=== PATIENT | male | born 1980 | race Caucasian/White ===

== ENCOUNTER 2016-05-23 21:19 | Emergency (ER) | payer SELFPAY ==
[~2016-05-23] VITALS: Ht 185.4 cm; Wt 77.1 kg
[~2016-05-23 21:19] MED LIST: ACHD5005 PO; ADHD MED; ALBU2.5V4 IH; ANTIBIOTIC; BENZ-13 PO; BUPR150T20 PO; CITA20TA12 PO; CLCX200C PO; CYCL10TA9 PO; DOXY100C2 PO; FLUP10TA; GBPN300C PO; GBPN600T PO; GFCD10B PO; HC2.5C30 TOP; HCT25T PO; HYDR-3820 PO; HYDR-707 PO; HYDR1TAB PO; HYDROCODONE; IBP800T PO; KLONOPIN; LAMO100T69 PO; LAMO150T3 PO; LAMO200T14 PO; LISI-552 PO; LISI-593 PO; LISI1TAB10 PO; MELO-198 PO; METO25TA2 PO; MINO100C2 PO; MULT-963 PO; NAPR-243 PO; NAPR550T PO; NEUROTIN; PRD20T PO; PRM25T PO; QUET50TA; SULF1TAB38 PO; TIZA4CAP PO; TOPI50TA37 PO; TRAM50TA2 PO; TRAZODONE; TRM50T PO; TRZ100T PO; ZIPR60CA6; [UNRECOGNIZED DRUG - CODE] PO; depression med; tylenol
--- OUTSIDE RECORDS SUMMARY | 2016-05-23 21:23 | XMS REPORT | Continuity of Care Document ---
Author Author [facility] Organization [facility] Address Unknown Phone Unavailable Care Team Providers Care Inspector Electromechanical Name Role Phone Unknown, Unknown PCP Unavailable Source Comments Some departments are not documenting in the electronic medical record. If you do not see the information that you expected, contact Release of Information in the Health Information Management department at [phone] for further assistance in locating additional records.[facility] Active Allergies and Adverse Reactions Not on File Current Medications Not on file Active Problems Not on file Social History Tobacco Use Types Packs/Day Years Used Date Never Assessed Plan of Care Health Maintenance Due Date Last Done Comments Physical (Comprehensive) 1989 Exam Pertussis Vaccine 1993 Tetanus Vaccine 07/27/1999 Influenza Vaccine 01/09/2015 Results from Last 3 Months Not on file
--- NOTE | 2016-05-23 21:52 | ED Fall/Injury ---
General Chief Complaint: Trauma-Non Activation Stated Complaint: FAC LAC/R WRIST INJ/SEIZURE Nursing Triage Note: FALL, SEE TRAUMA ASSESSMENT Source: patient Exam Limitations: no limitations History of Present Illness Time seen by provider: 21:50 Initial Comments To ER with a head injury. Patient states that he was arguing with his father when the police were called. Police arrived and "shoved me off my porch". States that he struck the left side of his head and face on the ground beneath and he subsequently lost consciousness and had a seizure. He reports seizure disorder but he does not take any medications to treat this. He also reports right wrist and left shoulder pain. Location Injury Occurred: HOME Occurred: just prior to arrival Severity: moderate Injuries/Pain Location: face Context: unknown Associated Symptoms (Fall): No Confusion, Headache Allergies and Home Medications Allergies Coded Allergies: Penicillins (Verified Allergy, Unknown, 01/12/08) codeine (Verified Allergy, Unknown, 01/12/08) Home Medications Albuterol Sulfate 2.5 Mg/3 Ml Vial.neb #28 2.5 MG IH Q4H PRN PRN SHORTNESS OF BREATH Prescribed by: LYRIC SEXTON on 02/27/16 1244 Benzonatate 100 Mg Capsule #14 1-2 CAP PO Q8H PRN PRN COUGH Prescribed by: LYRIC SEXTON on 02/27/16 1309 Citalopram Hydrobromide 20 Mg Tablet 20 MG PO DAILY (Reported) Hydrocodone/Acetaminophen 1 Each Tablet 1 EACH PO Q6H (Reported) Lisinopril/Hydrochlorothiazide 1 Each Tablet 1 EACH PO DAILY (Reported) Minocycline HCl 100 Mg Capsule #14 100 MG PO BID Prescribed by: LYRIC SEXTON on 02/27/16 1309 Prednisone 20 Mg Tab #10 40 MG PO DAILY Prescribed by: LYRIC SEXTON on 02/27/16 1244 Topiramate 50 Mg Tablet 50 MG PO BID (Reported) Constitutional: see HPI Eyes: No Symptoms Reported Ears, Nose, Mouth, Throat: no symptoms reported Respiratory: no symptoms reported Cardiovascular: no symptoms reported Genitourinary: no symptoms reported Musculoskeletal: no symptoms reported Skin: no symptoms reported Psychiatric/Neurological: No Symptoms Reported Past Wulczys-Zstwis-Qhnyzq Hx Patient Social History Alcohol Use: Occasionally Uses Recreational Drug Use: No Smoking Status: Former Smoker Type Used: Cigarettes Former Smoker/When Quit: May 11, 2009 Recent Foreign Travel: No Contact w/Someone Who Travel: No Recent Infectious Disease Expo: No Recent Hopitalizations: No Physical Abuse Screen: No Sexual Abuse: No Immunizations Up To Date Tetanus Booster (TDap): Unknown Date of Influenza Vaccine: May 11, 2012 Seasonal Allergies Seasonal Allergies: No Surgeries HX Surgeries: Yes (SURGERY ON FEMUR) Surgeries: Orthopedic, Tonsillectomy Respiratory Hx Respiratory Disorders: Yes (RESPIRATORY INFECTIONS) Cardiovascular Hx Cardiac Disorders: Yes (PT REPORTS HYPERTENSION RELATED TO MEDICATIONS) Cardiac Disorders: Hypertension Neurological Hx Neurological Disorders: Yes Neurological Disorders: Headaches /Migraines, Seizure Disorder Reproductive System Hx Reproductive Disorders: No Sexually Transmitted Disease: No HIV/AIDS: No Genitourinary Hx Genitourinary Disorders: No Gastrointestinal Hx Gastrointestinal Disorders: Yes Gastrointestinal Disorders: Ulcer Musculoskeletal Hx Musculoskeletal Disorders: Yes (FEMUR FRACTURE (PREVIOUS SURGERY ON FEMUR), back/hip pain) Musculoskeletal Disorders: Chronic Back Pain, Fractures Endocrine Hx Endocrine Disorders: Yes Endocrine Disorders: Hyperthyroidism HEENT HX ENT Disorders: No Cancer Hx Cancer: No Psychosocial Hx Psychiatric Problems: Yes Behavioral Health Disorders: ADD/ADHD, Sleep Difficulties, Bipolar, Schizophrenia, Depression Integumentary HX Skin/Integumentary Disorder: No Blood Transfusions Hx Blood Disorders: No Adverse Reaction to a Blood Tr: No Family Medical History Significant Family History: No Pertinent Family Hx Family Medial History: Patient reports no known family medical history. Physical Exam Vital Signs Vital Sign - Last 12Hours 05/23/16 21:36 Temp 96.7 Pulse 99 Resp 20 B/P 123/87 Pulse Ox 99 O2 Delivery Room Air Capillary Refill : Less Than 3 Seconds General Appearance: WD/WN no apparent distress HEENT: PERRL/EOMI normal ENT inspection TMs normal other (extraocular muscles are intact. There is an abrasion/contusion to the left cheek but there is not a laceration.) Neck: non-tender full range of motion Cardiovascular: regular rate, rhythm no murmur Respiratory: normal breath sounds no respiratory distress no accessory muscle use Gastrointestinal: normal bowel sounds non tender soft Neurologic/Psychiatric: alert normal mood/affect oriented x 3 [place] Coma Score Best Eye Response: (3) Open to Voice Best Verbal Response: (5) Oriented Best Motor Response: (6) Obeys Commands Monte[place]uma Total: 14 Progress/Results/Core Measures Results/Orders My Orders Orders-LO FRIEND APRN Wrist, Right, 3 Views Or More (05/23/16 21:46) Shoulder, Left, 3 Views (05/23/16 21:46) Ct Head/Face/Cervical Wo (05/23/16 21:46) Vital Signs/I&O Vital Sign - Last 12Hours 05/23/16 21:36 Temp 96.7 Pulse 99 Resp 20 B/P 123/87 Pulse Ox 99 O2 Delivery Room Air Blood Pressure Mean: 99 Diagnostic Imaging Diagonstic Imaging: CT Comments CT of the head and face cervical spine shows no acute intracranial hemorrhage, mass effect, midline shift, herniation or hydrocephalus. No calvarial fracture. CT of the facial bones shows no acute facial fractures. The globes and orbits are intact. Mandible is intact. There is left facial swelling/ contusion. CT cervical spine shows no fracture or significant malalignment. I do not see any fracture or dislocation of the left shoulder or right wrist where he also complains of pain. Departure Impression Impression: Primary Impression: Facial contusion Qualified Code: S00.83XA - Contusion of other part of head, initial encounter Additional Impression: Seizure disorder Disposition: 01 HOME, SELF-CARE Condition: Stable Departure-Patient Inst. Decision time for Depature: 22:24 Referrals: [facility] (PCP/Family) Primary Care Physician Patient Instructions: Contusion (DC) Add. Discharge Instructions: 1. Follow-up with your doctor next week 2. Return to ER for any concerns All discharge instructions reviewed with patient and/or family. Voiced understanding. LO FRIEND APRN May 23, 2016 21:52
[2016-05-23 22:46] VITALS: BP 106/62
--- NOTE | 2016-05-24 07:47 | Diagnostic Imaging Report ---
PROCEDURE: CT head, face, and cervical spine without contrast. TECHNIQUE: Multiple contiguous axial images were obtained through the head, neck, and facial bones without the use of intravenous contrast. Sagittal and coronal reformations through the cervical spine and facial bones were also performed. INDICATION: Fall. COMPARISON: August 19, 2015 and July 04, 2012 FINDINGS: No intracranial hemorrhage. No intracranial mass, mass effect, midline shift, herniation, hydrocephalus, or extra-axial fluid collection. No definite CT evidence of an acute ischemic infarction. The calvarium and extracalvarial soft tissues are unremarkable. The mandible is intact. No temporomandibular joint dislocation. The paranasal sinuses are clear. No acute facial fracture. Mild left facial swelling and contusion. No suspicious radiopaque foreign body. Alignment of the cervical spine is well maintained. Vertebral body heights are well-maintained. Alignment of the atlantooccipital joint is well maintained. Disc space heights are well-maintained. No acute fracture or dislocation. No destructive osseous process. The paraspinal soft tissues are unremarkable. IMPRESSION: 1. No acute intracranial abnormality. 2. No acute facial fracture. 3. No acute osseous abnormality within the cervical spine. 4. Mild left facial swelling and contusion. Agree with preliminary interpretation. Dictated by: Dictated on workstation # [id number]
--- NOTE | 2016-05-24 07:50 | Diagnostic Imaging Report ---
INDICATION: Fall, pain. COMPARISON: None available. TECHNIQUE: 3 radiographs of the right wrist are obtained dated May 23, 2016. FINDINGS: No acute fracture or dislocation. Carpal alignment is well maintained. No suspicious radiopaque foreign body. IMPRESSION: No acute osseous abnormality. Dictated by: Dictated on workstation # [id number]
--- NOTE | 2016-05-24 07:51 | Diagnostic Imaging Report ---
INDICATION: Fall, pain. COMPARISON: August 02, 2008 TECHNIQUE: 3 radiographs of the left shoulder dated May 23, 2016. FINDINGS: The acromioclavicular joint is unremarkable. No acute fracture or dislocation. No destructive osseous process. No suspicious radiopaque foreign body. IMPRESSION: No acute osseous abnormality. Dictated by: Dictated on workstation # [id number]
== END 2016-05-23 22:46 | disposition home or self-care (01) ==
LOC: EDUNIT# 21:19 → ER 21:20
DX: S00.81XA Abrasion of other part of head, initial encounter (principal); S69.91XA Unspecified injury of right wrist, hand and finger(s), initial encounter; S49.92XA Unspecified injury of left shoulder and upper arm, initial encounter; G40.909 Epilepsy, unspecified, not intractable, without status epilepticus; I10 Essential (primary) hypertension; Z79.899 Other long term (current) drug therapy; W17.89XA Other fall from one level to another, initial encounter; Y92.018 Other place in single-family (private) house as the place of occurrence of the external cause; Y99.8 Other external cause status
CPT/HCPCS: 70450; 70486; 72125; 73030; 73110

== ENCOUNTER → 2016-07-02 | Outpatient (CLI) | payer SELFPAY ==
--- OUTSIDE RECORDS SUMMARY | 2016-07-02 14:42 | XMS REPORT | Continuity of Care Document ---
Author Author [facility] Organization [facility] Address Unknown Phone Unavailable Care Team Providers Care Freight Inspector Name Role Phone Unknown, Unknown PCP Unavailable Source Comments Some departments are not documenting in the electronic medical record. If you do not see the information that you expected, contact Release of Information in the Health Information Management department at [phone] for further assistance in locating additional records.[facility] Active Allergies and Adverse Reactions Not [...]
--- NOTE | 2016-07-02 15:49 | Diagnostic Imaging Report ---
PROCEDURE: MRI lumbar spine. TECHNIQUE: Multiplanar, multisequence MRI of the lumbar spine was performed without contrast. INDICATION: Fell, back pain. FINDINGS: The previous MRI lumbar spine exam 01/26/12 noted mild degenerative disc disease at L4-L5. Specifically, there was a disc bulge centrally at this level. The disc compressed the ventral aspect of the thecal sac and narrowed the AP diameter of thecal sac to approximately 14 mm. On this exam, the disc bulge is perhaps minimally greater. The AP diameter of the thecal sac now measures 13.7 mm. There is mild narrowing of the neuroforamen on the right at this level. The remainder of the lumbar spine is unchanged when compared to the prior study. The thecal sac is generous and there is no evidence of spinal stenosis or nerve root encroachment at any level. There is no abnormal signal arising from the cord or the vertebral bodies to indicate an acute abnormality. There is no sign of a paraspinal mass. IMPRESSION: 1. There is mild degenerative disc disease at the L4-L5 level. The degenerative changes have not progressed significantly since the prior exam. There is still no evidence for spinal stenosis or nerve root encroachment at this level. 2. The remainder of the lumbar spine is stable as well. No new area of spinal stenosis or nerve root encroachment has developed. 3. There is no sign of an acute bony abnormality or of a cord lesion. Dictated by: Dictated on workstation # [id number]
== END ==
LOC: RAD 14:38
PROVIDERS: ATTEND Nurse Practitioner Community Health
DX: M54.41 Lumbago with sciatica, right side (principal)
CPT/HCPCS: 72148

== ENCOUNTER 2019-12-23 20:27 | Emergency (ER) | payer SELFPAY ==
[~2019-12-23] VITALS: Ht 187.9 cm; Wt 86.2 kg
[~2019-12-23 20:27] MED LIST changes: +ACHYD1T PO; -BENZ-13 PO; +BENZ100C18 PO; -HYDR-3820 PO; -LISI1TAB10 PO; +LISI1TAB26 PO; -MINO100C2 PO; +MINO100C5 PO
--- NOTE | 2019-12-23 21:31 | ED Upper Extremity ---
General Chief Complaint: Upper Extremity Stated Complaint: R HAND PAIN / SWELLING Nursing Triage Note: PT AMBULATE TO FT1 WITH C/O LEFT PAIN AND SWELLING. PT STATES HE BROKE THIS HAND ON 07/09/19 AND THE CAST WAS REMOVED X3 WEEKS AGO. PT REPORTING INCREASED PAIN. Nursing Sepsis Screen: No Definite Risk Source: patient Exam Limitations: no limitations History of Present Illness Date Seen by Provider: Dec 23, 2019 Time Seen by Provider: 21:25 Initial Comments Well appearing 39 yo male who presented via POV. States he broke his right distal radius in June of 2019, has been splinted and casted but continued to have issues over the past six months. States he was evaluated by his PCP Teddy Bhatt on Thursday and told he needed to follow up in [place] with ortho because his wrist "is not healing right and its filling up with blood". He is unsure of who to follow up with and states he has not received a phone call regarding f/u appointment. Tonight he is having increasing pain and swelling. States he took Tramadol twice today as directed and is unable to take anymore pain medication. Rates pain 10/10, describes as sharp, and is worse with movement. Onset: other (Intermittent over past 6 months ) Severity: moderate Pain/Injury Location: right forearm Method of Injury: fell Modifying Factors: Improves With Movement, Improves With Other (Unrelieved with Tramadol ) Allergies and Home Medications Allergies Coded Allergies: Penicillins (Verified Allergy, Unknown, 01/12/08) codeine (Verified Allergy, Unknown, 01/12/08) Home Medications Albuterol Sulfate 2.5 Mg/3 Ml Vial.neb, 2.5 MG IH Q4H PRN for SHORTNESS OF BREAT H Prescribed by: LYRIC SEXTON on 02/27/16 1244 Benzonatate 100 Mg Capsule, 1-2 CAP PO Q8H PRN for COUGH Prescribed by: LYRIC SEXTON on 02/27/16 1309 Citalopram Hydrobromide 20 Mg Tablet, 20 MG PO DAILY, (Reported) Hydrocodone Bit/Acetaminophen 1 Each Tablet, 1 EACH PO Q6H, (Reported) Lisinopril/Hydrochlorothiazide 1 Each Tablet, 1 EACH PO DAILY, (Reported) Minocycline HCl 100 Mg Capsule, 100 MG PO BID Prescribed by: LYRIC SEXTON on 02/27/16 1309 Prednisone 20 Mg Tab, 40 MG PO DAILY Prescribed by: LYRIC SEXTON on 02/27/16 1244 Topiramate 50 Mg Tablet, 50 MG PO BID, (Reported) Patient Home Medication List Home Medication List Reviewed: Yes Review of Systems Constitutional: no symptoms reported EENTM: no symptoms reported Respiratory: no symptoms reported Cardiovascular: no symptoms reported Gastrointestinal: no symptoms reported Genitourinary: no symptoms reported Musculoskeletal: joint pain (Right wrist/forearm ) Skin: no symptoms reported Psychiatric/Neurological: No Symptoms Reported All Other Systems Reviewed Negative Unless Noted: Yes Past Sugojeg-Nusjer-Wbqbjb Hx Patient Social History Alcohol Use: Denies Use Number of Drinks Today: AA Alcohol Beverage of Choice: Beer Recreational Drug Use: No Smoking Status: Never a Smoker Type Used: Cigarettes Former Smoker, Quit: Feb 26, 2014 Recent Foreign Travel: No Contact w/Someone Who Travel: No Recent Infectious Disease Expo: No Recent Hopitalizations: No Physical Abuse: No Sexual Abuse: No Mistreated: No Fear: No Immunizations Up To Date Tetanus Booster (TDap): Unknown Date of Influenza Vaccine: May 11, 2012 Seasonal Allergies Seasonal Allergies: No Past Medical History Surgeries: Yes (SURGERY ON FEMUR) Orthopedic, Tonsillectomy Respiratory: Yes (RESPIRATORY INFECTIONS) Cardiac: Yes (PT REPORTS HYPERTENSION RELATED TO MEDICATIONS) Hypertension Neurological: Yes Headaches /Migraines, Seizure Disorder Reproductive Disorders: No Sexually Transmitted Disease: No HIV/AIDS: No Gastrointestinal: Yes Ulcer Musculoskeletal: Yes (FEMUR FRACTURE (PREVIOUS SURGERY ON FEMUR), back/hip pain) Chronic Back Pain, Fractures Endocrine: Yes Hyperthyroidism Cancer: No Psychosocial: Yes ADD/ADHD, Sleep Difficulties, Bipolar, Schizophrenia, Depression Integumentary: No Blood Disorders: No Adverse Reaction/Blood Tranf: No Family Medical History Patient reports no known family medical history. No Pertinent Family Hx Physical Exam Vital Signs Vital Signs - First Documented 12/23/19 20:57 Temp 36.5 Pulse 94 Resp 22 B/P (MAP) 125/92 (103) O2 Delivery Room Air Capillary Refill : Less Than 3 Seconds Height, Weight, BMI Height: 6'1" Weight: 170lbs. 4.0oz. 77.263419lw; 24.00 BMI Method:Stated General Appearance: WD/WN, no apparent distress HEENT: normal ENT inspection, pharynx normal Neck: full range of motion, normal inspection Cardiovascular: regular rate, rhythm, no murmur Respiratory: chest non-tender, lungs clear, no respiratory distress Shoulder: normal inspection, non-tender, no evidence of injury, normal ROM Elbow/Forearm: Right, bone tenderness (over distal radius ), limited ROM, pain, swelling Wrist: Yes normal inspection, Yes bone tenderness, Yes limited ROM Hand: normal inspection, no evidence of injury, Right, limited ROM Neurologic/Psychiatric: alert, normal mood/affect, oriented x 3 Skin: normal color, warm/dry Skin is pink, warm, dry. Neurovascular intact with radial pulse 2+ distal to injury. Cap refill <2 seconds. Progress/Results/Core Measures Results/Orders My Orders Orders - JUNIOR EVANS APRN Forearm, Right, 2 Views (12/23/19 21:24) Ketorolac Injection (Toradol Injection) (12/23/19 22:15) Vital Signs/I&O 12/23/19 20:57 Temp 36.5 Pulse 94 Resp 22 B/P (MAP) 125/92 (103) O2 Delivery Room Air Blood Pressure Mean: 103 Progress Progress Note : Time: 22:07 Progress Note Discussed following up with ortho of choice for persistent pain with healed right distal radius fracture. Refused splint. Was placed in jocelin-wrap and provided an ice-pack. Given Toradol 60mg IM inject. in ED. Reviewed POC and he is agreeable with plan. Diagnostic Imaging Diagonstic Imaging: Xray Comments NAME: TAMARA KOEHLER [facility] REC#: [id number] PT STATUS: REG ER : 1980 PHYSICIAN: JUNIOR EVANS APRN ADMIT DATE: 12/23/19/ER Draft Date of Exam:12/23/19 FOREARM, RIGHT, 2 VIEWS INDICATION: Right forearm pain and swelling with old distal radial fracture. COMPARISON STUDY: Right wrist from 05/23/2016. FINDINGS: Two views of the right forearm demonstrate an old fracture of the distal right radius. No acute fracture is identified. There is no foreign body. IMPRESSION: There is a healed fracture of the distal right radius. Dictated on workstation # [id number] Dict: 12/23/19 2148 Trans: 12/23/19 2154 [facility] [id number] Interpreted by: SUN ANNE MD Electronically signed by: Departure Impression Primary Impression: Healed fracture of bone Additional Impression: History of radius fracture Disposition: 01 HOME, SELF-CARE Condition: Stable/Unchanged Departure-Patient Inst. Decision time for Depature: 22:05 Referrals: [facility] (PCP) Primary Care Physician MEDHAT BHATT (Family) Primary Care Physician Patient Instructions: Common Wrist Injuries (DC) Add. Discharge Instructions: Plan: 1. Follow up with ortho of your choice. Dr. Claudio is located in [place]. Office number is [phone]. 2. Use jocelin wrap for swelling and comfort. 3. May take over the counter Ibuprofen and Tylenol as needed per package for pain. 4. Ice 20 minutes 4-6x per day for pain/swelling. 5. Return for any new or concerning symptoms. All discharge instructions reviewed with patient and/or family. Voiced understanding. JUNIOR EVANS HANG GLIDING INSTRUCTOR Dec 23, 2019 21:31
--- NOTE | 2019-12-23 21:55 | Diagnostic Imaging Report ---
INDICATION: Right forearm pain and swelling with old distal radial fracture. COMPARISON STUDY: Right wrist from 05/23/2016. FINDINGS: Two views of the right forearm demonstrate an old fracture of the distal right radius. No acute fracture is identified. There is no foreign body. IMPRESSION: There is a healed fracture of the distal right radius. Dictated by: Dictated on workstation # [id number]
[2019-12-23] MEDS ORDERED: KETOROLAC 60 MG/2 ML VIAL IM ONE (22:15)
[2019-12-23 22:21] VITALS: BP 144/87
== END 2019-12-23 22:21 | disposition home or self-care (01) ==
LOC: EDUNIT# 20:27 → ER 20:29
DX: M79.631 Pain in right forearm (principal); I10 Essential (primary) hypertension; G40.909 Epilepsy, unspecified, not intractable, without status epilepticus; G43.909 Migraine, unspecified, not intractable, without status migrainosus; F31.9 Bipolar disorder, unspecified; G89.29 Other chronic pain; M54.9 Dorsalgia, unspecified; Z87.81 Personal history of (healed) traumatic fracture; Z87.891 Personal history of nicotine dependence; Z88.0 Allergy status to penicillin; Z88.5 Allergy status to narcotic agent; Z79.891 Long term (current) use of opiate analgesic; Z79.52 Long term (current) use of systemic steroids
CPT/HCPCS: 73090

== ENCOUNTER 2020-10-03 20:26 | Emergency (ER) | payer SELFPAY ==
[~2020-10-03] VITALS: Ht 188 cm; Wt 87.0 kg
[~2020-10-03 20:26] MED LIST changes: -LISI-552 PO; +LISI20TA26 PO; +MUPI22OI2 TP; +SULF1TAB35 PO
[2020-10-03 20:29] VITALS: BP 151/100
--- NOTE | 2020-10-03 20:50 | ED Upper Extremity ---
General Chief Complaint: Laceration Stated Complaint: L ARM LAC Nursing Triage Note: LEFT FOREARM LACERATION. Nursing Sepsis Screen: No Definite Risk Source: patient Exam Limitations: no limitations History of Present Illness Date Seen by Provider: October 03, 2020 Time Seen by Provider: 20:26 Initial Comments Patient to the ER by private conveyance with chief complaint that he was doing some brush talking and picked up a log to get it out of the way and something scratched him on his medial anterior left forearm at the wrist causing him to bleed. He does not take blood thinners and has no history of anemia. He had a tetanus vaccine 2 weeks ago when he stepped on a nail. Allergies and Home Medications Allergies Coded Allergies: Penicillins (Verified Allergy, Unknown, 01/12/08) codeine (Verified Allergy, Unknown, 01/12/08) Patient Home Medication List Home Medication List Reviewed: Yes Review of Systems Constitutional: No chills, No diaphoresis EENTM: No ear discharge, No ear pain Respiratory: No cough, No short of breath Cardiovascular: No chest pain, No edema Gastrointestinal: No abdominal pain, No nausea Genitourinary: No discharge, No dysuria Skin: see HPI All Other Systems Reviewed Negative Unless Noted: Yes Past Rqkoirc-Ppdyqc-Kvnvww Hx Patient Social History Alcohol Use: Regular Use Number of Drinks Today: AA Alcohol Beverage of Choice: Beer, Whiskey Smoking Status: Current Everyday Smoker Type Used: Cigarettes Recent Infectious Disease Expo: No Recent Hopitalizations: No Immunizations Up To Date Tetanus Booster (TDap): Less than 5yrs Date of Influenza Vaccine: May 11, 2012 Seasonal Allergies Seasonal Allergies: No Past Medical History Surgeries: Yes (SURGERY ON FEMUR) Orthopedic, Tonsillectomy Respiratory: Yes (RESPIRATORY INFECTIONS) Chronic Bronchitis Cardiac: Yes Hypertension Neurological: Yes Headaches /Migraines, Seizure Disorder Reproductive Disorders: No Sexually Transmitted Disease: No HIV/AIDS: No Genitourinary: No Gastrointestinal: Yes Ulcer Musculoskeletal: Yes Chronic Back Pain, Fractures Endocrine: Yes Hyperthyroidism HEENT: No Cancer: No Psychosocial: Yes ADD/ADHD, Sleep Difficulties, Bipolar, Schizophrenia, Depression Integumentary: No Blood Disorders: No Adverse Reaction/Blood Tranf: No Family Medical History Patient reports no known family medical history. No Pertinent Family Hx Physical Exam Vital Signs Vital Signs - First Documented 10/03/20 20:29 Temp 35.6 Pulse 107 Resp 18 B/P (MAP) 151/100 (117) Pulse Ox 96 O2 Delivery Room Air Capillary Refill : Less Than 3 Seconds Height, Weight, BMI Height: 6'1" Weight: 170lbs. 4.0oz. [id number]; 24.00 BMI Method:Stated General Appearance: WD/WN, mild distress HEENT: PERRL/EOMI, pharynx normal Cardiovascular: normal peripheral pulses, regular rate, rhythm, no edema Respiratory: no respiratory distress, no accessory muscle use Wrist: Yes pain (Laceration curvilinear over the anterior distal ulnar surface of the wrist. Into the dermis about 1 cm and the rest of superficial. Total length about 3.5 cm.), Yes soft tissue tenderness Hand: normal inspection, non-tender, no evidence of injury, normal ROM, Left Procedures/Interventions Wound Location: Upper Extremities Other Wound Location Left wrist Wound Length (cm): 3.5 Wound's Depth, Shape: superficial, linear, sub Q (Dermis subcu) Wound Explored: clean Irrigated w/ Saline (ccs): 100 Betadine Prep?: Yes (Pleurx) Anesthesia: 1% Lidocaine Volume Anesthetic (ccs): 1 Suture: Ethlion Suture Size: 5-0 Other Closure Supply: Wound Adhesive Number of Sutures: 1 Sterile Dressing Applied?: Yes Progress Wound was closed with 1 suture and then the rest of the superficial wound was sealed with cyanoacrylate. Patient tolerated procedure well Progress/Results/Core Measures Results/Orders Vital Signs/I&O 10/03/20 20:29 Temp 35.6 Pulse 107 Resp 18 B/P (MAP) 151/100 (117) Pulse Ox 96 O2 Delivery Room Air Blood Pressure Mean: 117 Departure Impression Primary Impression: Laceration of left wrist Qualified Codes: S61.512A - Laceration without foreign body of left wrist, initial encounter Disposition: HOME, SELF-CARE Condition: Stable Departure-Patient Inst. Decision time for Depature: 20:49 Referrals: [facility] (PCP) Primary Care Physician MEDHTA KENNEY (Family) Primary Care Physician Patient Instructions: Laceration Repair With Stitches (DC), Laceration Repair With Glue ED Add. Discharge Instructions: Keep the wound clean with regular soap and water. You can put a small amount of Vaseline or triple antibiotic ointment over it and keep it covered with a clean dry gauze dressing if you are going to be in a dirty environment. Return to the ER in 7 to 10 days to have the suture removed. Return to the ER or your doctor sooner if you are noticing increasing redness going up your arm, fever or other worrisome symptoms. All discharge instructions reviewed with patient and/or family. Voiced underst anding. MESSI MAHER October 03, 2020 20:49
== END 2020-10-03 20:51 | disposition home or self-care (01) ==
LOC: EDUNIT# 20:26 → ER 20:27
DX: S61.512A Laceration without foreign body of left wrist, initial encounter (principal); I10 Essential (primary) hypertension; F17.210 Nicotine dependence, cigarettes, uncomplicated; W26.9XXA Contact with unspecified sharp object(s), initial encounter
CPT/HCPCS: 12002

== ENCOUNTER 2020-11-15 10:07 | Emergency (ER) | payer OTHER ==
[~2020-11-15] VITALS: Ht 187.9 cm; Wt 78.0 kg
--- NOTE | 2020-11-15 10:34 | ED Trauma-Multisystem ---
General Chief Complaint: Trauma-Non Activation Stated Complaint: FELL Nursing Triage Note: Pt arrival to ER via EMS with complaint of fall. Pt fell <8 feet from bucket of bulldozer. Pt landed face first into pile of bricks. No loss of consciousness. Pt refused c-collar. Source of Information: Patient Exam Limitations: No Limitations (ALEX MASTERSON MD) History of Present Illness Date Seen by Provider: Nov 15, 2020 Time Seen by Provider: 10:20 Initial Comments Patient is a 40-year-old male who presents to the emergency department by EMS after a fall of approximately 5 to 8 feet out of a bucket truck. Patient was in a bucket of a bulldozer doing some construction work when a pole hit the bucket he was standing in and knocked him out. Patient states that he landed basically head/face first into a pile of bricks. He denies any loss of consciousness. Patient did initially have a c-collar put on by EMS however he removed it. He is got some mild pain in his neck. He denies any pain in his chest, abdomen or pelvis. No extremity injuries other than some scrapes and bruises. Patient primarily is concerned about nasal bridge, right jaw and left side of his chin. He states his last tetanus shot was approximately 1 year ago after stepping on a nail. Patient denies shortness of breath, nausea or vomiting. He is very dry and requesting something to drink. He is allergic to penicillin. All other review of systems reviewed and negative except as stated above. Location Injury Occurred: Work Site Occurred: Just Prior to Arrival Severity: Moderate Pain/Injury Location: Face Method of Injury: Fall Loss of Consciousness: No Loss of Consciousness Associated Symptoms (Fall): Denies Symptoms (ALEX MASTERSON MD) Allergies and Home Medications Allergies Coded Allergies: Penicillins (Verified Allergy, Unknown, 01/12/08) codeine (Verified Allergy, Unknown, 01/12/08) Patient Home Medication List Home Medication List Reviewed: Yes (ALEX MASTERSON MD) Review of Systems Review of Systems Constitutional: see HPI Eyes: No Symptoms Reported Ears: No Symptoms Reported Nose: Bloody Discharge Mouth: No Symptoms Reported, Other (Laceration right lower cheek and left chin) Throat: No Symptoms to Report Respiratory: no symptoms reported Cardiovascular: No Symptoms Reported Gastrointestinal: no symptoms reported Genitourinary: no symptoms reported Musculoskeletal: no symptoms reported Skin: other (Multiple lacerations) Psychiatric/Neurological: No Symptoms Reported (ALEX MASTERSON MD) All Other Systems Reviewed Negative Unless Noted: Yes (ALEX MASTERSON MD) Past Fntbguo-Qdrxmq-Ojxlvz Hx Patient Social History Tobacco Use?: No Substance use?: No Alcohol Use?: Yes Alcohol type: Beer Alcohol Frequency: Daily Pt feels they are or have been: No (ALEX MASTERSON MD) Immunizations Up To Date Tetanus Booster (TDap): Less than 5yrs (ALEX MASTERSON MD) Seasonal Allergies Seasonal Allergies: No (ALEX MASTERSON MD) Past Medical History Surgeries: Yes (SURGERY ON FEMUR) Orthopedic, Tonsillectomy Respiratory: Yes (RESPIRATORY INFECTIONS) Chronic Bronchitis Cardiac: Yes Hypertension Neurological: Yes Headaches /Migraines, Seizure Disorder Reproductive Disorders: No Sexually Transmitted Disease: No HIV/AIDS: No Genitourinary: No Gastrointestinal: Yes Ulcer Musculoskeletal: Yes Chronic Back Pain, Fractures Endocrine: Yes Hyperthyroidism HEENT: No Cancer: No Psychosocial: Yes ADD/ADHD, Sleep Difficulties, Bipolar, Schizophrenia, Depression Integumentary: No Blood Disorders: No Adverse Reaction/Blood Tranf: No (ALEX MASTERSON MD) Family Medical History Patient reports no known family medical history. No Pertinent Family Hx (ALEX MASTERSON MD) Physical Exam Vital Signs Vital Signs - First Documented 11/15/20 10:08 Temp 36.5 Pulse 69 Resp 20 B/P (MAP) 131/97 (108) Pulse Ox 98 O2 Delivery Room Air (LO FRIEND APRN) Height, Weight, BMI Height: 6'1" Weight: 170lbs. 4.0oz. 77.684915pm; 22.00 BMI Method:Stated General Appearance: No Apparent Distress, WD/WN Eyes: Bilateral Eye Normal Inspection, Bilateral Eye PERRL, Bilateral Eye EOMI Ears, Nose, Throat: Hearing Grossly Normal, No Dental Injury, Hemotympanum (Slight hemotympanum noted to the left TM small crescent of bluish discoloration is noted about the 4 to 7 o'clock position, unable to evaluate right TM secondary to hair and cerumen) Neck: Supple, Tender Midline (Patient has diffuse mild tenderness in the midline cervical spine. He is adamantly refusing a c-collar and is holding his head still.) Cardiovascular: Regular Rate, Rhythm Respiratory: Lungs Clear, Normal Breath Sounds, No Accessory Muscle Use, No Respiratory Distress Gastrointestinal: Normal Bowel Sounds, Non Tender, Soft Extremity: Normal Inspection, Normal Range of Motion, Non Tender, No Calf Tenderness Neurologic/Psychiatric: Alert, Oriented x3, No Motor/Sensory Deficits, Normal Mood/Affect, inflated ball molder II-XII Norm as Tested Skin: Normal Color, Warm/Dry, Other (Patient has a very deep laceration to the right lower cheek at the corner of the mouth. It is approximately 5 cm in length, 2-1/2 cm in depth. No active bleeding. Is not a through and through laceration. Patient has a another vertical orientation 2 cm laceration to the left of the midline of the chin with no active bleeding. This appears superficial. Patient has a 1-1/2 cm laceration just over the bridge of the nose that is somewhat macerated. Again it has no active bleeding.; Patient has abrasions to the right medial knee and the hyperthenar eminence of the right hand) (ALEX MASTERSON MD) Olivier Coma Score Best Eye Response ([place]): (4) Open Spontaneously Best Verbal Response ([place]): (5) Oriented Best Motor Response ([place]): (6) Obeys Commands (ALEX MASTERSON MD) Procedures/Interventions Suture Size: 5-0 (ALEX MASTERSON MD) Wound Location: Face Wound Length (cm): 5 Wound's Depth, Shape: into muscle, irregular, sub Q Wound Explored: clean Irrigated w/ Saline (ccs): 60 Anesthesia: 1% Lidocaine Volume Anesthetic (ccs): 3 Suture: Prolene, Monocryl Suture Size: 5-0 Number of Sutures: 9 Layer Closure?: 2 Number Deep Layer Sutures: 2 Progress The 1cm laceration to the bridge of the nose down to bone Anesthetized with 1 mL of 1% lidocaine without epinephrine. Wound then scrubbed with chlorhexidine/saline solution and closed with 4 simple erupted sutures size 5-0 Prolene. The 3 cm stellate laceration to the right lower mandible is down to the muscle and subcutaneous tissue. The deep cavity was irrigated, this was anesthetized with 3 mL of 1% lidocaine without epinephrine. Wound was closed with 2 buried absorbable suture size 5-0 Monocryl then closed with one long continuous suture and 3 simple interrupted sutures. The 1 cm laceration to the left mandible down to the subcutaneous tissue closed with 1 continuous suture size 5-0 Prolene. (LO FRIEND APRN) Progress/Results/Core Measures Results/Orders Medications Given in ED Current Medications Medications Dose Ordered Sig/Chanel Route Start Time Stop Time Status Last Admin Dose Admin Lidocaine/ Epinephrine 30 ml ONCE ONCE INJ 11/15/20 10:45 11/15/20 10:46 DC 11/15/20 11:51 30 ML (LO FRIEND APRN) Vital Signs/I&O 11/15/20 10:08 Temp 36.5 Pulse 69 Resp 20 B/P (MAP) 131/97 (108) Pulse Ox 98 O2 Delivery Room Air (LO FRIEND APRN) Blood Pressure Mean: 108 Diagnostic Imaging Diagonstic Imaging: CT Plain Films/CT/US/NM/MRI: facial bones, c-spine, head Comments [facility] [place], [place] NAME: TAMARA KOEHLER [facility] REC#: [id number] PT STATUS: REG ER : 1980 PHYSICIAN: ALEX MASTERSON MD ADMIT DATE: 11/15/20/ER Draft Date of Exam:11/15/20 CT HEAD/FACE/CERVICAL WO Clinical indication: A beam fell and hit patient in the face, nose and patient has a laceration. Patient has pain to the nose and right side of jaw. Exam: Axial Head CT without IV contrast with sagittal and coronal reformations. Axial Maxillofacial CT scan without IV contrast with sagittal and coronal reformations. Axial CT scan of the cervical spine with sagittal and coronal reformations. Auto Exposure Controls were utilized during the CT exam to meet ALARA standards for radiation dose reduction. Comparison: CT scan of the head, max face, and cervical spine dated 05/23/2016. Findings: Head and maxillofacial CT: There is no evidence of acute cerebral infarct, intracranial hemorrhage, or gross mass effect. The brain parenchymal volume appears appropriate for patient's age. There is normal zimmerman-white matter distinction. There is no significant midline shift or herniation. There is no evidence of hydrocephalus. The basal cisterns are unremarkable. There is displaced, comminuted fractures involving the right and left nasal bone regions. There is medial displacement of the nasal bone fracture fragments. There is rightward deviation of the anterior aspect of the nasal septum which has progressed and may represent an acute fracture. There is no other skull or maxillofacial fracture seen. There is a soft tissue laceration with air and soft tissue swelling laterally adjacent to the right mandibular body. There is no mandibular fracture seen. Regions are intact. There is mild mucosal thickening involving both maxillary sinuses. Mastoid air cells are clear. There are transverse fractures involving the frontal process of the right and left maxilla. Cervical spine: There is no acute cervical spine fracture or dislocation. There are small spurs anteriorly involving the lower cervical spine. There is no significant central spinal canal or neural foramen narrowing. There is no significant neck soft tissue mildly. Visualized upper lung drake are clear. Impression: 1: There is comminuted and displaced fractures involving the right left nasal bone regions. There are fractures of the frontal processes of both maxilla. There is progression of nasal septal deviation toward the right which may represent acute fracture of the anterior aspect of the nasal septum. 2: There is no evidence of intracranial hemorrhage. 3: There is no acute cervical spine fracture or dislocation. Dictated on workstation # [id number] Dict: 11/15/20 1102 Trans: 11/15/20 1138 [facility] [id number] Interpreted by: ERIK MCLEAN MD Electronically signed by: (ALEX MASTERSON MD) Departure Impression Primary Impression: Face lacerations Additional Impression: Nasal bone fractures Disposition: 01 HOME, SELF-CARE Condition: Improved Departure-Patient Inst. Decision time for Depature: 12:54 (LO FRIEND APRN) Referrals: [facility] (PCP) Primary Care Physician MEDHAT KENNEY (Family) Primary Care Physician Patient Instructions: Laceration Repair With Stitches ED Add. Discharge Instructions: 1. Do not blow your nose. If you have nasal congestion you can use Afrin decongestant for a few days. Return to ER in about 5 to 7 days to have the stitches removed. You can shower letting water run over the starting this evening. Take the antibiotics as directed. All discharge instructions reviewed with patient and/or family. Voiced understanding. Scripts Cephalexin (Cephalexin) 500 Mg Tablet 500 MG PO TID, #15 TAB Prov: LO FRIEND APRN 11/15/20 ALEX MASTERSON MD Nov 15, 2020 10:34 LO FRIEND APRN Nov 15, 2020 12:55
[2020-11-15] MEDS ORDERED: LIDOCAINE/EPI 1%-1:200,000 (XYLOCAINE) 30 ML VIAL INJ ONE (10:45)
--- NOTE | 2020-11-15 11:38 | Diagnostic Imaging Report ---
Clinical indication: A beam fell and hit patient in the face, nose and patient has a laceration. Patient has pain to the nose and right side of jaw. Exam: Axial Head CT without IV contrast with sagittal and coronal reformations. Axial Maxillofacial CT scan without IV contrast with sagittal and coronal reformations. Axial CT scan of the cervical spine with sagittal and coronal reformations. Auto Exposure Controls were utilized during the CT exam to meet ALARA standards for radiation dose reduction. Comparison: CT scan of the head, max face, and cervical spine dated 05/23/2016. Findings: Head and maxillofacial CT: There is no evidence of acute cerebral infarct, intracranial hemorrhage, or gross mass effect. The brain parenchymal volume appears appropriate for patient's age. There is normal zimmerman-white matter distinction. There is no significant midline shift or herniation. There is no evidence of hydrocephalus. The basal cisterns are unremarkable. There is displaced, comminuted fractures involving the right and left nasal bone regions. There is medial displacement of the nasal bone fracture fragments. There is rightward deviation of the anterior aspect of the nasal septum which has progressed and may represent an acute fracture. There is no other skull or maxillofacial fracture seen. There is a soft tissue laceration with air and soft tissue swelling laterally adjacent to the right mandibular body. There is no mandibular fracture seen. Regions are intact. There is mild mucosal thickening involving both maxillary sinuses. Mastoid air cells are clear. There are transverse fractures involving the frontal process of the right and left maxilla. Cervical spine: There is no acute cervical spine fracture or dislocation. There are small spurs anteriorly involving the lower cervical spine. There is no significant central spinal canal or neural foramen narrowing. There is no significant neck soft tissue mildly. Visualized upper lung drake are clear. Impression: 1: There is comminuted and displaced fractures involving the right left nasal bone regions. There are fractures of the frontal processes of both maxilla. There is progression of nasal septal deviation toward the right which may represent acute fracture of the anterior aspect of the nasal septum. 2: There is no evidence of intracranial hemorrhage. 3: There is no acute cervical spine fracture or dislocation. Dictated by: Dictated on workstation # [id number]
[2020-11-15] MEDS ORDERED: CEPH500T PO (12:55)
[2020-11-15 13:16] VITALS: BP 158/106
== END 2020-11-15 13:16 | disposition home or self-care (01) ==
LOC: EDUNIT# 10:07 → ER 10:09
DX: S02.2XXA Fracture of nasal bones, initial encounter for closed fracture (principal); S01.512A Laceration without foreign body of oral cavity, initial encounter; S80.211A Abrasion, right knee, initial encounter; I10 Essential (primary) hypertension; W20.8XXA Other cause of strike by thrown, projected or falling object, initial encounter
CPT/HCPCS: 70450; 70486; 72125

== ENCOUNTER 2021-05-07 13:47 | Emergency (ER) | payer SELFPAY ==
[~2021-05-07] VITALS: Ht 188 cm; Wt 82.6 kg
[~2021-05-07 13:47] MED LIST changes: +CEPH500T PO; -DOXY100C2 PO; +DOXY100C5 PO; -LISI1TAB26 PO; +LISI1TAB48 PO; -SULF1TAB35 PO
[2021-05-07] MEDS ORDERED: ACHD5005 PO (15:10)
[2021-05-07] MEDS ORDERED: PRD20T PO (15:10)
--- NOTE | 2021-05-07 15:11 | ED Back Pain ---
General Chief Complaint: Back Problems Stated Complaint: BACK PAIN Nursing Triage Note: PT TO RM 3 W REPORTS OF LOWER BACK & LEFT SIDE PAIN X4 DAYS. DENIES INJURY, REPORTS HE WAS SCHEDULED FOR XRAYS TODAY AT [facility] BUT DECIDED TO COME TO ED INSTEAD. A&OX4. Source of Information: Patient Exam Limitations: No Limitations (LO FRIEND APRN) History of Present Illness Date Seen by Provider: May 07, 2021 Time Seen by Provider: 15:08 Initial Comments To ER with midline low back pain that radiates up the left side and down the left leg. No loss of bowel or bladder control no fever no chills no loss of sensation of his genitals. No nausea no vomiting. No injury. He had [facility] but did not feel like he could make it there so he came here. Location: Lumbar Spine, Paraspinous Muscles Timing/Duration: 2-3 Days Severity: Moderate Pain/Injury Location: Back Associated Symptoms: lower back pain (LO FRIEND APRN) Allergies and Home Medications Allergies Coded Allergies: Penicillins (Verified Allergy, Unknown, 01/12/08) codeine (Verified Allergy, Unknown, 01/12/08) Patient Home Medication List Home Medication List Reviewed: Yes (LO FRIEND APRN) Cephalexin (Cephalexin) 500 Mg Tablet, 500 MG PO TID Prescribed by: LO FRIEND on 11/15/20 1255 Hydrocodone/Acetaminophen (Hydrocodone-Acetamin 5-325 mg) 1 Each Tablet, 1 TAB PO Q4H PRN for PAIN-MODERATE (5-7) Prescribed by: LO FRIEND on 05/07/21 1511 Prednisone (Prednisone) 20 Mg Tab, 40 MG PO DAILY Prescribed by: LO FRIEND on 05/07/21 1510 Review of Systems Constitutional: see HPI EENTM: see HPI Respiratory: no symptoms reported Cardiovascular: no symptoms reported Genitourinary: no symptoms reported Musculoskeletal: see HPI, back pain Skin: no symptoms reported Psychiatric/Neurological: No Symptoms Reported (LO FRIEND APRN) Past Euqxjvi-Istulg-Rxkwzi Hx Patient Social History Tobacco Use?: No Use of E-Cig and/or Vaping dev: No Substance use?: No Alcohol Use?: No (LO FRIEND APRN) Immunizations Up To Date Tetanus Booster (TDap): Less than 5yrs Influenza Vaccine Up-to-Date: Yes; Up-to-Date First/Initial COVID19 Vaccinat: NONE Second COVID19 Vaccination Junaid: NONE Third COVID19 Vaccination Date: NONE COVID19 Vaccine Statistician Theoretical: NONE (LO FRIEND APRN) Seasonal Allergies Seasonal Allergies: No (LO FRIEND APRN) Past Medical History Surgeries: Yes (SURGERY ON FEMUR) Orthopedic, Tonsillectomy Respiratory: Yes (RESPIRATORY INFECTIONS) Chronic Bronchitis Cardiac: Yes Hypertension Neurological: Yes Headaches /Migraines, Seizure Disorder Reproductive Disorders: No Sexually Transmitted Disease: No HIV/AIDS: No Genitourinary: No Gastrointestinal: Yes Ulcer Musculoskeletal: Yes Chronic Back Pain, Fractures Endocrine: Yes Hyperthyroidism HEENT: No Cancer: No Psychosocial: Yes ADD/ADHD, Sleep Difficulties, Bipolar, Schizophrenia, Depression Integumentary: No Blood Disorders: No Adverse Reaction/Blood Tranf: No (LO FRIEND APRN) Family Medical History Patient reports no known family medical history. No Pertinent Family Hx (LO FRIEND APRN) Physical Exam Vital Signs Vital Signs - First Documented 05/07/21 14:30 Temp 36.5 Pulse 92 Resp 22 B/P (MAP) 134/91 (105) Pulse Ox 98 O2 Delivery Room Air (ALTON STAPLES MD) Vital Signs Capillary Refill : Less Than 3 Seconds (LO FRIEND APRN) Height, Weight, BMI Height: 6'1" Weight: 170lbs. 4.0oz. 77.262572pm; 23.00 BMI Method:Stated General Appearance: No Apparent Distress, WD/WN Neck: Full Range of Motion, Normal Inspection Cardiovascular: Regular Rate, Rhythm, Normal Peripheral Pulses Respiratory: Normal Breath Sounds, No Accessory Muscle Use, No Respiratory D istress Gastrointestinal: Normal Bowel Sounds, Non Tender, Soft Extremity: Normal Capillary Refill, Normal Inspection Neurologic/Psychiatric: Alert, Oriented x3 Skin: Normal Color, Warm/Dry (LO FRIEND APRN) Procedures/Interventions Suture Size: 5-0 (LO FRIEND APRN) Progress/Results/Core Measures Results/Orders Medications Given in ED Current Medications Medications Dose Ordered Sig/Chanel Route Start Time Stop Time Status Last Admin Dose Admin Ketorolac Tromethamine 60 mg ONCE ONCE IM 05/07/21 15:15 05/07/21 15:16 DC 05/07/21 15:14 60 MG Orphenadrine Citrate 60 mg ONCE ONCE IM 05/07/21 15:15 05/07/21 15:16 DC 05/07/21 15:14 60 MG (ALTON STAPLES MD) Vital Signs/I&O 05/07/21 05/07/21 14:30 16:05 Temp 36.5 Pulse 92 88 Resp 22 20 B/P (MAP) 134/91 (105) 128/86 Pulse Ox 98 99 O2 Delivery Room Air Room Air (ALTON STAPLES MD) Blood Pressure Mean: 105 Departure Impression Primary Impression: Acute exacerbation of chronic low back pain Disposition: HOME, SELF-CARE Condition: Stable Departure-Patient Inst. Decision time for Depature: 15:09 (LO FRIEND APRN) Referrals: [facility] [place] [facility] (PCP) Primary Care Physician MEDHAT KENNEY (Family) Primary Care Physician Patient Instructions: Low Back Pain (DC) Add. Discharge Instructions: 1. Medication as directed 2. Follow-up with your doctor next week 3. All discharge instructions reviewed with patient and/or family. Voiced understanding. Scripts Prednisone (Prednisone) 20 Mg Tab 40 MG PO DAILY, #6 TAB 0 Refills Prov: LO FRIEND APRN 05/07/21 Hydrocodone/Acetaminophen (Hydrocodone-Acetamin 5-325 mg) 1 Each Tablet 1 TAB PO Q4H PRN for PAIN-MODERATE (5-7), #10 TAB Prov: LO FRIEND APRN 05/07/21 Work/School Note: Work Release Form Date Seen in the Emergency Department: May 07, 2021 Return to Work: May 08, 2021 ATTENDING PHYSICIAN NOTE: I was physically present as attending physician in the emergency department during the care of this patient, but I was not directly involved in the decision making or delivery of care for this patient. (ALTON STAPLES MD) LO FRIEND APRN May 07, 2021 15:11 ALTON STAPLES MD May 07, 2021 18:44
[2021-05-07] MEDS ORDERED: KETOROLAC 60 MG/2 ML VIAL IM ONE (15:15)
[2021-05-07] MEDS ORDERED: ORPHENADRINE 60 MG/2 ML (NORFLEX) AMP (ED ONLY) IM ONE (15:15)
--- NOTE | 2021-05-07 15:45 | Diagnostic Imaging Report ---
INDICATION: Back pain. AP and lateral views of the lumbar spine are obtained. FINDINGS: The lumbar vertebrae are normal in height and alignment. There is no fracture or subluxation. Disc spaces are normal in height. IMPRESSION: Unremarkable lumbar spine. Dictated by: Dictated on workstation # [id number]
[2021-05-07 16:05] VITALS: BP 128/86
== END 2021-05-07 16:05 | disposition home or self-care (01) ==
LOC: EDUNIT# 13:47 → ER 13:49
DX: G89.29 Other chronic pain (principal); M54.50 Low back pain, unspecified; I10 Essential (primary) hypertension; Z79.891 Long term (current) use of opiate analgesic
CPT/HCPCS: 72100; 96372

== ENCOUNTER 2021-09-18 16:40 | Emergency (ER) | payer SELFPAY ==
[~2021-09-18] VITALS: Ht 187 cm; Wt 88.0 kg
[2021-09-18] MEDS ORDERED: KETOROLAC 60 MG/2 ML VIAL IM ONE (17:00)
[2021-09-18] MEDS ORDERED: ORPHENADRINE 60 MG/2 ML (NORFLEX) AMP (ED ONLY) IM ONE (17:00)
--- NOTE | 2021-09-18 17:02 | ED Back Pain ---
General Chief Complaint: Back Problems Stated Complaint: LOWER BACK PAIN, R LEG PAIN Source of Information: Patient Exam Limitations: No Limitations (RENETTA ALVARADO) History of Present Illness Date Seen by Provider: September 18, 2021 Time Seen by Provider: 16:59 Initial Comments Patient is a 41-year-old male who presents to ED with right lower back pain, right hip pain. Patient with a history of back pain secondary to bulging disc. Patient states exacerbating pain over the past 2 days with a fall. Patient reports shooting pain down into the right foot. No leg weakness but described as ozvu-ywn-zevhlua and sharp shooting. Denies of any bowel or urine incontinence, saddle paresthesia, right lower leg weakness. Woke up with the pain yesterday. Patient has been taking ibuprofen without much improvement. Patient has not followed up with neurosurgery. Denies history of epidural injections. Denies night sweats, fever, weight loss, abdominal pain, chest pain. Difficulty ambulating secondary to pain. Patient moderate distress on arrival. (RENETTA ALVARADO) Allergies and Home Medications Allergies Coded Allergies: Penicillins (Verified Allergy, Unknown, 01/12/08) codeine (Verified Allergy, Unknown, 01/12/08) Patient Home Medication List Home Medication List Reviewed: Yes (LAURA HODGES) Cephalexin (Cephalexin) 500 Mg Tablet, 500 MG PO TID Prescribed by: LO FRIEND on 11/15/20 1255 Cyclobenzaprine HCl (Cyclobenzaprine HCl) 10 Mg Tablet, 10 MG PO Q8H PRN for SPASMS Prescribed by: LAURA HODGES on 09/18/211856 Hydrocodone/Acetaminophen (Hydrocodone-Acetamin 5-325 mg) 1 Each Tablet, 1 TAB PO Q4H PRN for PAIN-MODERATE (5-7) Prescribed by: LO FRIEND on 05/07/21 151 Hydrocodone/Acetaminophen (Hydrocodone-Acetamin 5-325 mg) 5 Mg-325 Mg Tablet, 1 TAB PO Q6H PRN for PAIN-MODERATE (5-7) Prescribed by: LAURA HODGES on 09/18/211856 Prednisone (Prednisone) 20 Mg Tab, 40 MG PO DAILY Prescribed by: LO FRIEND on 05/07/21 1510 Prednisone (Prednisone) 20 Mg Tab, 40 MG PO DAILY Prescribed by: LAURA HODGES on 09/18/21 185 Review of Systems Constitutional: No chills, No diaphoresis, No malaise, No weakness EENTM: No blurred vision, No double vision, No hoarseness, No mouth pain, No mouth swelling Respiratory: No cough, No dyspnea on exertion Cardiovascular: No chest pain, No edema Gastrointestinal: No abdominal pain, No diarrhea, No nausea, No vomiting Genitourinary: No decreased output, No discharge Musculoskeletal: back pain, joint pain; No joint swelling, No muscle pain, No muscle stiffness Skin: No change in color, No change in hair/nails (RENETTA ALVARADO) All Other Systems Reviewed Negative Unless Noted: Yes (RENETTA ALVARADO) Past Foozozj-Twodgz-Imjcii Hx Immunizations Up To Date Tetanus Booster (TDap): Less than 5yrs First/Initial COVID19 Vaccinat: NONE Second COVID19 Vaccination Junaid: NONE Third COVID19 Vaccination Date: NONE (RENETTA ALVARADO) Seasonal Allergies Seasonal Allergies: No (RENETTA ALVARADO) Past Medical History Surgeries: Yes (SURGERY ON FEMUR) Orthopedic, Tonsillectomy Respiratory: Yes (RESPIRATORY INFECTIONS) Chronic Bronchitis Cardiac: Yes Hypertension Neurological: Yes Headaches /Migraines, Seizure Disorder Reproductive Disorders: No Sexually Transmitted Disease: No HIV/AIDS: No Genitourinary: No Gastrointestinal: Yes Ulcer Musculoskeletal: Yes Chronic Back Pain, Fractures Endocrine: Yes Hyperthyroidism HEENT: No Cancer: No Psychosocial: Yes ADD/ADHD, Sleep Difficulties, Bipolar, Schizophrenia, Depression Integumentary: No Blood Disorders: No Adverse Reaction/Blood Tranf: No (RENETTA ALVARADO) Family Medical History Patient reports no known family medical history. No Pertinent Family Hx (RENETTA ALVARADO) Physical Exam Vital Signs Vital Signs - First Documented 09/18/21 16:51 Temp 37.2 Pulse 123 Resp 16 B/P (MAP) 141/114 (123) Pulse Ox 98 O2 Delivery Room Air (LAURA HODGES) Vital Signs Capillary Refill : (RENETTA ALVARADO) Height, Weight, BMI Height: 6'1" Weight: 170lbs. 4.0oz. 77.832477co; 23.00 BMI Method:Stated General Appearance: No Apparent Distress, WD/WN HEENT: PERRL/EOMI, TMs Normal, Normal ENT Inspection, Pharynx Normal Neck: Full Range of Motion, Normal Inspection, Non Tender, Supple Cardiovascular: Regular Rate, Rhythm, No Edema, No Gallop Respiratory: Chest Non Tender, Lungs Clear, Normal Breath Sounds, No Respiratory Distress Gastrointestinal: Normal Bowel Sounds, No Organomegaly, No Pulsatile Mass Back: Other (Right lumbar paraspinal muscle tenderness, lumbar midline tenderness. No swelling, erythema or ecchymosis) Extremity: Normal Capillary Refill, Other (Dorsiflexion plantarflexion bilateral intact. +2 dorsalis pedis bilateral. Warm extremities with cap refill less than 2. Positive straight leg raise right leg) Neurologic/Psychiatric: Alert, Oriented x3, No Motor/Sensory Deficits, Normal Mood/Affect (RENETTA ALVARADO) Procedures/Interventions Suture Size: 5-0 (RENETTA ALVARADO) Progress/Results/Core Measures Results/Orders My Orders Orders - LAURA HODGES Fentanyl Inj (Sublimaze Injection) (09/18/21 18:47) (LAURA HODGES) Medications Given in ED Current Medications Medications Dose Ordered Sig/Chanel Route Start Time Stop Time Status Last Admin Dose Admin Ketorolac Tromethamine 30 mg ONCE ONCE IM 09/18/21 17:00 09/18/21 17:01 DC 09/18/21 17:32 30 MG Orphenadrine Citrate 60 mg ONCE ONCE IM 09/18/21 17:00 09/18/21 17:01 DC 09/18/21 17:32 60 MG (LAURA HODGES) Vital Signs/I&O 09/18/21 09/18/21 16:51 19:04 Temp 37.2 Pulse 123 97 Resp 16 18 B/P (MAP) 141/114 (123) 132/98 Pulse Ox 98 100 O2 Delivery Room Air Room Air (LAURA HODGES) Progress Progress Note : Time: 18:00 Progress Note assumed care of patient. 1844 patient reports pain continues to be 8/10 despite medication. Reviewed x- rays and CT no significant abnormality. Will attempt fentanyl 50 mcg IM 1914 patient reports pain to be improving. Discharge instructions and return precautions reviewed with him. (LAURA HODGES) Diagnostic Imaging Diagonstic Imaging: CT Comments NAME: TAMARA KOEHLER [facility] REC#: [id number] PT STATUS: REG ER : 1980 PHYSICIAN: RENETTA ALVARADO ADMIT DATE: 09/18/21/ER Signed Date of Exam:09/18/21 CT LUMBAR SPINE WO PROCEDURE: CT lumbar spine without contrast. TECHNIQUE: Multiple contiguous axial images were obtained through the lumbar spine without the use of intravenous contrast. Sagittal and coronal reformations were then performed. Auto Exposure Controls were utilized during the CT exam to meet ALARA standards for radiation dose reduction. INDICATION: Low back pain with right leg radiculopathy. COMPARISON: 05/07/2021. 12/31/2011. FINDINGS: No acute fracture or dislocation is seen in the lumbar spine. Alignment is anatomic. No focal osseous lesions are seen. No evidence of acute spinal canal stenosis. No high-grade degenerative changes are present in the lumbar spine. No evidence of high-density material in the spinal canal. The paraspinal soft tissues are unremarkable. IMPRESSION: 1. No acute fracture or dislocation in lumbar spine. Dictated by: Dictated on workstation # [id number] Dict: 09/18/211803 Trans: 09/18/211808 [facility] [id number] Interpreted by: ABDOUL ANAYA DO Electronically signed by: ABDOUL ANAYA DO 09/18/211808 Reviewed: Reviewed by Me Diagonstic Imaging: Xray Plain Films/CT/US/NM/MRI: pelvis Comments NAME: TAMARA KOEHLER [facility] REC#: [id number] PT STATUS: REG ER : 1980 PHYSICIAN: RENETTA ALVARADO ADMIT DATE: 09/18/21/ER Draft Date of Exam:09/18/21 HIP, RIGHT, 2 VIEWS CLINICAL INDICATION: Patient complains of lower back pain and goes into the right leg starting yesterday. EXAM: X-ray right hip, AP and frog-leg views. COMPARISON: None. FINDINGS: There is no acute fracture or dislocation. There is minimal spurring involving the medial aspect of the proximal femoral head/neck junction region. Visualized portions of the right sacroiliac joints symphysis pubis region is unremarkable. IMPRESSION: Minimal degenerative disease in right hip with no acute fracture or dislocation. Dictated on workstation # [id number] Dict: 09/18/211805 Trans: 09/18/211816 CV [id number] Interpreted by: ROSALIE MCLEAN Reviewed: Reviewed by Me (LAURA HODGES) Departure Communication (PCP) Patient with acute on chronic low back pain and right hip pain. Radiculopathy pain right leg. Similar type pain in the past however patient felt a pop in his back and has not been able to ambulate. He has no neurological red flag findings such as bowel or urine incontinence saddle paresthesia. He does have appropriate strength in the right lower extremity but pain with any type of movement. No swelling, erythema or ecchymosis. No abdominal pain chest pain fever weight loss night sweats, drug use. CT scan lumbar spine and right hip was ordered rule out any possible fracture. Possible bulging disc which she states he does have a history of. Patient was discussed with Laura Hodges who took over care at 600 pm. Patient was given a round of pain medication. Will provide disposition. Patient without any urinary symptoms. (RENETTA ALVARADO) Impression Primary Impression: Chronic back pain Qualified Codes: M54.41 - Lumbago with sciatica, right side; G89.29 - Other chronic pain Additional Impression: Lumbar radiculopathy Disposition: 01 HOME, SELF-CARE Condition: Improved Departure-Patient Inst. Decision time for Depature: 18:30 (LAURA HODGES) Referrals: [facility] (PCP) Primary Care Physician MEDHAT KENNEY (Family) Primary Care Physician Patient Instructions: Low Back Pain (DC) Add. Discharge Instructions: Alternate heat and ice to your low back. Follow-up at [facility], either through the walk-in care or with a primary care provider. Take medications as prescribed. Limit your ibuprofen to 600 mg every 8 hours. Walking or swimming is good for your low back. Return to the emergency department for new, urgent healthcare needs. All discharge instructions reviewed with patient and/or family. Voiced understanding. Scripts Cyclobenzaprine HCl (Cyclobenzaprine HCl) 10 Mg Tablet 10 MG PO Q8H PRN for SPASMS, #15 TAB 0 Refills Prov: LAURA HDOGES 09/18/21 Prednisone (Prednisone) 20 Mg Tab 40 MG PO DAILY, #8 TAB 0 Refills Prov: LAURA HODGES 09/18/21 Hydrocodone/Acetaminophen (Hydrocodone-Acetamin 5-325 mg) 5 Mg-325 Mg Tablet 1 TAB PO Q6H PRN for PAIN-MODERATE (5-7), #12 TAB 0 Refills Prov: ALURA HODGES 09/18/21 RENETTA ALVARADO September 18, 2021 17:02 LAURA HODGES September 18, 2021 18:21
--- NOTE | 2021-09-18 18:09 | Diagnostic Imaging Report ---
PROCEDURE: CT lumbar spine without contrast. TECHNIQUE: Multiple contiguous axial images were obtained through the lumbar spine without the use of intravenous contrast. Sagittal and coronal reformations were then performed. Auto Exposure Controls were utilized during the CT exam to meet ALARA standards for radiation dose reduction. INDICATION: Low back pain with right leg radiculopathy. COMPARISON: 05/07/2021. 12/31/2011. FINDINGS: No acute fracture or dislocation is seen in the lumbar spine. Alignment is anatomic. No focal osseous lesions are seen. No evidence of acute spinal canal stenosis. No high-grade degenerative changes are present in the lumbar spine. No evidence of high-density material in the spinal canal. The paraspinal soft tissues are unremarkable. IMPRESSION: 1. No acute fracture or dislocation in lumbar spine. Dictated by: Dictated on workstation # [id number]
--- NOTE | 2021-09-18 18:18 | Diagnostic Imaging Report ---
CLINICAL INDICATION: Patient complains of lower back pain and goes into the right leg starting yesterday. EXAM: X-ray right hip, AP and frog-leg views. COMPARISON: None. FINDINGS: There is no acute fracture or dislocation. There is minimal spurring involving the medial aspect of the proximal femoral head/neck junction region. Visualized portions of the right sacroiliac joints symphysis pubis region is unremarkable. IMPRESSION: Minimal degenerative disease in right hip with no acute fracture or dislocation. Dictated by: Dictated on workstation # [id number]
[2021-09-18] MEDS ORDERED: HYDROcodone/APAP 7.5 MG/325 MG (LORTAB, LORCET PLUS) TABLET PO STA (18:38)
[2021-09-18] MEDS ORDERED: fentaNYL INJ 100 MCG/2 ML AMP IM STA (18:47)
[2021-09-18] MEDS ORDERED: CYCL10TA25 PO (18:57)
[2021-09-18] MEDS ORDERED: PRD20T PO (18:57)
[2021-09-18] MEDS ORDERED: ACHD5005 PO (18:57)
[2021-09-18 19:04] VITALS: BP 132/98
== END 2021-09-18 19:07 | disposition home or self-care (01) ==
LOC: EDUNIT# 16:40 → ER 16:42
DX: M54.41 Lumbago with sciatica, right side (principal); M54.16 Radiculopathy, lumbar region; G89.29 Other chronic pain
CPT/HCPCS: 72131; 73502

== ENCOUNTER 2021-11-12 17:02 | Emergency (ER) | payer SELFPAY ==
[~2021-11-12 17:02] MED LIST changes: +CYCL10TA25 PO
--- NOTE | 2021-11-12 17:10 | ED Cardiac General ---
History of Present Illness General Chief Complaint: Chest Pain Stated Complaint: CHEST PAIN Source: patient Exam Limitations: no limitations History of Present Illness Date Seen by Provider: Nov 12, 2021 Time Seen by Provider: 17:10 Allergies and Home Medications Allergies Coded Allergies: Penicillins (Verified Allergy, Unknown, 01/12/08) codeine (Verified Allergy, Unknown, 01/12/08) Patient Home Medication List Cephalexin (Cephalexin) 500 Mg Tablet, 500 MG PO TID Prescribed by: LO FRIEND on 11/15/20 1255 Cyclobenzaprine HCl (Cyclobenzaprine HCl) 10 Mg Tablet, 10 MG PO Q8H PRN for SPASMS Prescribed by: YOGI HODGES on 09/18/21 185 Hydrocodone/Acetaminophen (Hydrocodone-Acetamin 5-325 mg) 1 Each Tablet, 1 TAB PO Q4H PRN for PAIN-MODERATE (5-7) Prescribed by: LO FRIEND on 05/07/21 151 Hydrocodone/Acetaminophen (Hydrocodone-Acetamin 5-325 mg) 5 Mg-325 Mg Tablet, 1 TAB PO Q6H PRN for PAIN-MODERATE (5-7) Prescribed by: YOGI HODGES on 09/18/21 185 Methylprednisolone (Methylprednisolone Dose Pack) 4 Mg Tab.ds.pk, 4 MG PO UD Prescribed by: JUNIOR EVANS on 11/12/211811 Prednisone (Prednisone) 20 Mg Tab, 40 MG PO DAILY Prescribed by: LO FRIEND on 05/07/21 151 Prednisone (Prednisone) 20 Mg Tab, 40 MG PO DAILY Prescribed by: YOGI HODGES on 09/18/21 185 Past Wpopbqf-Mvqtyb-Kihkzy Hx Immunizations Up To Date Tetanus Booster (TDap): Less than 5yrs First/Initial COVID19 Vaccinat: NONE Second COVID19 Vaccination Junaid: NONE Third COVID19 Vaccination Date: NONE Seasonal Allergies Seasonal Allergies: No Past Medical History Surgeries: Yes (SURGERY ON FEMUR) Orthopedic, Tonsillectomy Respiratory: Yes (RESPIRATORY INFECTIONS) Chronic Bronchitis Cardiac: Yes Hypertension Neurological: Yes Headaches /Migraines, Seizure Disorder Reproductive Disorders: No Sexually Transmitted Disease: No HIV/AIDS: No Genitourinary: No Gastrointestinal: Yes Ulcer Musculoskeletal: Yes Chronic Back Pain, Fractures Endocrine: Yes Hyperthyroidism HEENT: No Cancer: No Psychosocial: Yes ADD/ADHD, Sleep Difficulties, Bipolar, Schizophrenia, Depression Integumentary: No Blood Disorders: No Adverse Reaction/Blood Tranf: No Family Medical History Patient reports no known family medical history. No Pertinent Family Hx Physical Exam Vital Signs Vital Signs - First Documented 11/12/21 17:02 Temp 36.8 Pulse 94 Resp 16 B/P (MAP) 128/84 (99) Capillary Refill : Height, Weight, BMI Height: 6'1" Weight: 170lbs. 4.0oz. 77.323373qi; 25.00 BMI Method:Stated Procedures/Interventions Suture Size: 5-0 Progress/Results/Core Measures Results/Orders Lab Results Laboratory Tests Test 11/12/21 17:10 11/12/21 17:17 Range/Units White Blood Count 6.2 4.3-11.0 10^3/uL Red Blood Count 5.17 4.30-5.52 10^6/uL Hemoglobin 15.8 13.3-17.7 g/dL Hematocrit 46 40-54 % Mean Corpuscular Volume 89 80-99 fL Mean Corpuscular Hemoglobin 31 25-34 pg Mean Corpuscular Hemoglobin Concent 35 32-36 g/dL Red Cell Distribution Width 12.7 10.0-14.5 % Platelet Count 260 130-400 10^3/uL Mean Platelet Volume 9.9 9.0-12.2 fL Immature Granulocyte % (Auto) 0 % Neutrophils (%) (Auto) 53 42-75 % Lymphocytes (%) (Auto) 32 12-44 % Monocytes (%) (Auto) 13 H 0-12 % Eosinophils (%) (Auto) 2 0-10 % Basophils (%) (Auto) 0 0-10 % Neutrophils # (Auto) 3.3 1.8-7.8 10^3/uL Lymphocytes # (Auto) 2.0 1.0-4.0 10^3/uL Monocytes # (Auto) 0.8 0.0-1.0 10^3/uL Eosinophils # (Auto) 0.2 0.0-0.3 10^3/uL Basophils # (Auto) 0.0 0.0-0.1 10^3/uL Immature Granulocyte # (Auto) 0.0 0.0-0.1 10^3/uL Prothrombin Time 12.9 12.2-14.7 SEC INR Comment 0.9 0.8-1.4 Activated Partial Thromboplast Time 28 24-35 SEC D-Dimer 0.25 0.00-0.49 UG/ML Sodium Level 137 135-145 MMOL/L Potassium Level 3.9 3.6-5.0 MMOL/L Chloride Level 104 98-107 MMOL/L Carbon Dioxide Level 24 21-32 MMOL/L Anion Gap 9 5-14 MMOL/L Blood Urea Nitrogen 17 7-18 MG/DL Creatinine 1.17 0.60-1.30 MG/DL Estimat Glomerular Filtration Rate 81 BUN/Creatinine Ratio 15 Glucose Level 105 70-105 MG/DL Calcium Level 8.8 8.5-10.1 MG/DL Corrected Calcium 8.9 8.5-10.1 MG/DL Magnesium Level 2.1 1.6-2.4 MG/DL Total Bilirubin 1.0 0.1-1.0 MG/DL Aspartate Amino Transf (AST/SGOT) 18 5-34 U/L Alanine Aminotransferase (ALT/SGPT) 21 0-55 U/L Alkaline Phosphatase 80 40-136 U/L Creatine Kinase MB 1.6 <6.6 NG/ML Myoglobin 26.6 10.0-92.0 NG/ML Troponin I < 0.028 <0.028 NG/ML B-Type Natriuretic Peptide 18.2 <100.0 PG/ML Total Protein 6.7 6.4-8.2 GM/DL Albumin 3.9 3.2-4.5 GM/DL Influenza Type A (RT-PCR) Not Detected Not Detecte Influenza Type B (RT-PCR) Not Detected Not Detecte SARS-CoV-2 RNA (RT-PCR) Not Detected Not Detecte My Orders Orders - JUNIOR EVANS ENGAGEMENT LEAD Cbc With Automated Diff (11/12/21 17:07) Magnesium (11/12/21 17:07) Chest 1 View, Ap/Pa Only (11/12/21 17:07) Ekg Tracing (11/12/21 17:07) Comprehensive Metabolic Panel (11/12/21 17:07) Myoglobin Serum (11/12/21 17:07) Protime With Inr (11/12/21 17:07) Partial Thromboplastin Time (11/12/21 17:07) O2 (11/12/21 17:07) Monitor-Rhythm Ecg Trace Only (11/12/21 17:07) Ed Iv/Invasive Line Start (11/12/21 17:07) Creatine Kinase Mb (11/12/21 17:07) Bnp [place] (11/12/21 17:07) Fibrin Degradation Products (11/12/21 17:07) Troponin I [place] (11/12/21 17:07) Covid 19 Inhouse Test (11/12/21 17:09) Influenza A And B By Pcr (11/12/21 17:09) Ketorolac Injection (Toradol Injection) (11/12/21 17:15) Morphine Injection (Morphine Injection (11/12/21 17:17) Azithromycin Tablet (Zithromax Tablet) (11/12/21 18:30) Medications Given in ED Current Medications Medications Dose Ordered Sig/Chanel Route Start Time Stop Time Status Last Admin Dose Admin Ketorolac Tromethamine 30 mg ONCE ONCE IVP 11/12/21 17:15 11/12/21 17:16 DC 11/12/21 17:16 30 MG Vital Signs/I&O 11/12/21 17:02 Temp 36.8 Pulse 94 Resp 16 B/P (MAP) 128/84 (99) Departure Impression Primary Impression: Anterior pleuritic pain Disposition: HOME, SELF-CARE Condition: Improved Departure-Patient Inst. Decision time for Depature: 18:09 Referrals: [facility] (PCP) Primary Care Physician MEDHAT KENNEY (Family) Primary Care Physician Patient Instructions: Pleuritic Chest Pain ED Add. Discharge Instructions: Plan: 1. Take Ibuprofen 600mg by mouth every 6 hours for pain as needed. Take with food. 2. Take Medrol dose pack as directed, take with food. 3. Follow up with your primary care provider if your symptoms persist. 4. Return for any new, concerning, or worsening symptoms. All discharge instructions reviewed with patient and/or family. Voiced understanding. Scripts Azithromycin (Azithromycin) 250 Mg Tablet 250 MG PO DAILY, #4 TAB 0 Refills Prov: JUNIOR EVANS ENGAGEMENT LEAD 11/12/21 Methylprednisolone (Methylprednisolone Dose Pack) 4 Mg Tab.ds.pk 4 MG PO UD for 6 Days, #21 PKG 0 Refills PER DOSE PACK INSTRUCTIONS Prov: JUNIOR EVANS ENGAGEMENT LEAD 11/12/21 JUNIOR EVANS ENGAGEMENT LEAD Nov 12, 2021 17:10
[2021-11-12] MEDS ORDERED: KETOROLAC 30 MG/ML VIAL IVP ONE (17:15)
[2021-11-12 17:16] LABS: BASOPHILS % (AUTO) 0 % (0-10); EOSINOPHILS # (AUTO) 0.2 10^3/uL (0.0-0.3); EOSINOPHILS % (AUTO) 2 % (0-10); HEMATOCRIT 46 % (40-54); HEMOGLOBIN 15.8 g/dL (13.3-17.7); LYMPHOCYTES % (AUTO) 32 % (12-44); MEAN CORPUSCULAR HEMOGLOBIN 31 pg (25-34); MEAN CORPUSCULAR HGB CONC 35 g/dL (32-36); MEAN CORPUSCULAR VOLUME 89 fL (80-99); MEAN PLATELET VOLUME 9.9 fL (9.0-12.2); MONOCYTES # (AUTO) 0.8 10^3/uL (0.0-1.0); MONOCYTES % (AUTO) 13 % (0-12); NEUTROPHILS # (AUTO) 3.3 10^3/uL (1.8-7.8); NEUTROPHILS % (AUTO) 53 % (42-75); PLATELET COUNT 260 10^3/uL (130-400); WHITE BLOOD COUNT 6.2 10^3/uL (4.3-11.0)
[2021-11-12] MEDS ORDERED: morphine INJ 10 MG/ML 1ML (SYR OR VIAL) IVP STA (17:17)
[2021-11-12 17:29] LABS: ALBUMIN 3.9 GM/DL (3.2-4.5)
[2021-11-12 17:30] LABS: POTASSIUM 3.9 MMOL/L (3.6-5.0)
[2021-11-12 17:31] LABS: CALCIUM 8.8 MG/DL (8.5-10.1); INR 0.9 (0.8-1.4); PROTHROMBIN TIME PATIENT 12.9 SEC (12.2-14.7)
[2021-11-12 17:32] LABS: TOTAL PROTEIN 6.7 GM/DL (6.4-8.2)
[2021-11-12 17:36] LABS: CREATININE SERUM 1.17 MG/DL (0.60-1.30)
[2021-11-12 17:39] LABS: MAGNESIUM 2.1 MG/DL (1.6-2.4)
[2021-11-12 17:46] LABS: CREATINE KINASE MB 1.6 NG/ML (<6.6)
--- NOTE | 2021-11-12 17:54 | Diagnostic Imaging Report ---
Indication: Chest pain. Time of Exam: 5:45 PM Comparison is made with prior chest from 10/22/2012. Findings: The heart size is normal. The pulmonary vascularity is unremarkable. The lungs are clear. No infiltrate, effusion or pneumothorax is detected. Impression: No acute cardiopulmonary process is detected. Dictated by: Dictated on workstation # [id number]
[2021-11-12] MEDS ORDERED: METH4TAB10 PO (18:12)
[2021-11-12] MEDS ORDERED: AZIT250T12 PO (18:20)
[2021-11-12] MEDS ORDERED: AZITHROMYCIN 250 MG TAB (ZITHROMAX) PO ONE (18:30)
[2021-11-12 18:35] VITALS: BP 119/75
== END 2021-11-12 18:39 | disposition home or self-care (01) ==
LOC: EDUNIT# 17:05 → ER 17:07
DX: R07.81 Pleurodynia (principal); Z20.822 Contact with and (suspected) exposure to COVID-19; Z28.310 Unvaccinated for COVID-19
CPT/HCPCS: 36415; 71045; 80053; 82553; 83735; 83874; 83880; 84484; 85025; 85379; 85610; 85730; 87636; 93005; 93041

== ENCOUNTER 2021-12-06 17:34 | Emergency (ER) | payer SELFPAY ==
[~2021-12-06] VITALS: Ht 187 cm; Wt 82.0 kg
[~2021-12-06 17:34] MED LIST changes: +AZIT250T12 PO; +METH4TAB10 PO
--- NOTE | 2021-12-06 17:54 | ED General ---
General Chief Complaint: Head/Cervical Problems Stated Complaint: ARMENTA,JONATHAN Source of Information: Patient History of Present Illness Date Seen by Provider: Dec 06, 2021 Time Seen by Provider: 17:47 Initial Comments PT ARRIVES VIA EMS--SENT HERE FROM [facility] C/O HEADACHE--BACK OF HEAD --"LIKE SOMEONE IS HITTING ME WITH A SLEDGEHAMMER" . NO RELIEF WITH TYLENOL X 1 AT 1430 TODAY C/O LIGHT SENSITIVITY C/O SHORTNESS OF BREATH--OFF AND ON FOR A COUPLE OF DAYS, BUT NOT NOW NO COUGH NO CONGESTION NO SORE THROAT NO NAUSEA/VOMITING/DIARRHEA NO LOSS OF TASTE OR SMELL NO BODY ACHES NO FEVER/SWEATS/CHILLS ADDITIONALLY, ALSO C/O STATES EARLIER TODAY, HIS "RIGHT ARM WOULDN'T WORK AND HIS LEFT ARM FELT NUMB" --THOSE SYMPTOMS RESOLVED AND IS UNABLE TO STATE HOW LONG THOSE SYMPTOMS LASTED OR WHEN THEY BEGAN--SOMETIME LAST EVENING. NO CHEST PAIN NO DIZZINESS NO VISION CHANGES NO PALPITATIONS STATES HE HAD AN EKG DONE AT [facility] AND THEN WAS SENT HERE HAS NOT HAD COVID VACCINE OR FLU VACCINE HAS HISTORY OF "CHRONIC HEADACHES", BUT STATES THIS IS MUCH DIFFERENT. HAD A HEADACHE YESTERDAY, BUT WAS NOT IN SAME AREA, AND WENT AWAY AFTER A SHORT PERIOD OF TIME STATES HIS LAST REGULAR HEADACHE WAS 2-3 MONTHS AGO ALSO HAS HISTORY OF FREQUENT BRONCHITIS PT SMOKED 1/2-1 PPD, QUIT 5 YEARS AGO. PT NORMALLY DRINKS ALCOHOL DAILY, BUT HAS NOT ANY ANY FOR SEVERAL DAYS. 12 PACK PLUS A FIFTH OF "FIREBALL" A DAY DENIES DRUG USE TO ME, BUT HAS ADMITTED TO DAILY THC USE AND USING METH AT LEAST ONCE A WEEK TO [facility] ST[facility] TODAY. PCP: [facility] Allergies and Home Medications Allergies Coded Allergies: Penicillins (Verified Allergy, Unknown, 01/12/08) codeine (Verified Allergy, Unknown, 01/12/08) Patient Home Medication List Home Medication List Reviewed: Yes Azithromycin (Azithromycin) 250 Mg Tablet, 250 MG PO DAILY Prescribed by: JUNIOR EVANS on 11/12/21 1820 Cephalexin (Cephalexin) 500 Mg Tablet, 500 MG PO TID Prescribed by: LO FRIEND on 11/15/20 1255 Cyclobenzaprine HCl (Cyclobenzaprine HCl) 10 Mg Tablet, 10 MG PO Q8H PRN for SPASMS Prescribed by: YOGI HODGES on 09/18/211856 Hydrocodone/Acetaminophen (Hydrocodone-Acetamin 5-325 mg) 1 Each Tablet, 1 TAB PO Q4H PRN for PAIN-MODERATE (5-7) Prescribed by: LO FRIEND on 05/07/211510 Hydrocodone/Acetaminophen (Hydrocodone-Acetamin 5-325 mg) 5 Mg-325 Mg Tablet, 1 TAB PO Q6H PRN for PAIN-MODERATE (5-7) Prescribed by: YOGI HODGES on 09/18/211856 Methylprednisolone (Methylprednisolone Dose Pack) 4 Mg Tab.ds.pk, 4 MG PO UD Prescribed by: JUNIOR EVANS on 11/12/211811 Prednisone (Prednisone) 20 Mg Tab, 40 MG PO DAILY Prescribed by: LO FRIEND on 05/07/211509 Prednisone (Prednisone) 20 Mg Tab, 40 MG PO DAILY Prescribed by: YOGI HODGES on 09/18/211856 Review of Systems Review of Systems Constitutional: no symptoms reported EENTM: see HPI Respiratory: see HPI Cardiovascular: no symptoms reported Gastrointestinal: no symptoms reported Genitourinary: no symptoms reported Musculoskeletal: no symptoms reported Skin: no symptoms reported Psychiatric/Neurological: See HPI Hematologic/Lymphatic: No Symptoms Reported Immunological/Allergic: no symptoms reported Past Smmnidv-Ruqgdv-Kjeqdy Hx Patient Social History Tobacco Use?: Yes Tobacco type used: Cigarettes Smoking Status: Current Everyday Smoker Substance use?: Yes Substance type: Methamphetamine, Opiates/Opioids, Misuse of prescript meds, Marijuana Alcohol Use?: Yes Alcohol type: Beer, Hard Liquor Alcohol Frequency: Daily Pt feels they are or have been: No Immunizations Up To Date Tetanus Booster (TDap): Less than 5yrs Influenza Vaccine Up-to-Date: Yes; Up-to-Date First/Initial COVID19 Vaccinat: 2020 Second COVID19 Vaccination Junaid: 2020 Third COVID19 Vaccination Date: NONE Seasonal Allergies Seasonal Allergies: No Past Medical History Surgery/Hospitalization HX: HTN FEMUR Surgeries: Yes (SURGERY ON FEMUR) Orthopedic, Tonsillectomy Respiratory: Yes (RESPIRATORY INFECTIONS) Chronic Bronchitis Cardiac: Yes Hypertension Neurological: Yes Headaches /Migraines, Seizure Disorder Reproductive Disorders: No Sexually Transmitted Disease: No HIV/AIDS: No Genitourinary: No Gastrointestinal: Yes Ulcer Musculoskeletal: Yes Chronic Back Pain, Fractures Endocrine: Yes Hyperthyroidism HEENT: No Cancer: No Psychosocial: Yes ADD/ADHD, Sleep Difficulties, Bipolar, Schizophrenia, Depression Integumentary: No Blood Disorders: No Adverse Reaction/Blood Tranf: No Family Medical History Patient reports no known family medical history. No Pertinent Family Hx SOCIAL HISTORY: -SMOKED 1/2-1 PPD, QUIT 5 YEARS AGO, PER PT ON 12/06/21 -ETOH--DRINKS DAILY--12 PACK BEER PLUS A FIFTH OF "FIREBALL" EVERY DAY -DRUGS--METH, THC, OPIATES. DENIES IV DRUG USE. STATES SHE SMOKES METH. Physical Exam Vital Signs Vital Signs - First Documented 12/06/21 17:44 Temp 36.6 Pulse 79 B/P (MAP) 146/103 (117) Pulse Ox 100 Capillary Refill : Height, Weight, BMI Height: 6'1" Weight: 170lbs. 4.0oz. 77.256495zi; 25.00 BMI Method:Stated General Appearance: No Apparent Distress, WD/WN, Thin, Other (DIRTY/UNKEMPT, MALODOROUS. DOES NOT APPEAR ILL OR TO BE IN ANY DISCOMFORT OR DISTRESS. WEARING SUNGLASSES) HEENT: PERRL/EOMI, Other (POOR DENTITION) Neck: Full Range of Motion, Normal Inspection, Non Tender, Supple Respiratory: Normal Breath Sounds, No Accessory Muscle Use, No Respiratory Distress Cardiovascular: Regular Rate, Rhythm, No Edema, No JVD, No Murmur, Normal Peripheral Pulses Gastrointestinal: Soft Extremity: Normal Capillary Refill, Normal Inspection, Normal Range of Motion, Non Tender, No Calf Tenderness, No Pedal Edema Neurologic/Psychiatric: Alert, Oriented x3, No Motor/Sensory Deficits, Normal Mood/Affect, adoption worker II-XII Norm as Tested; No Abnormal Cerebellar Tests Skin: Normal Color, Warm/Dry, Tattoos/Piercings (TATTOOS) Procedures/Interventions Suture Size: 5-0 Progress/Results/Core Measures Suspected Sepsis SIRS Temperature: Pulse: Respiratory Rate: Laboratory Tests 12/06/21 17:39: White Blood Count 9.1 Blood Pressure / Mean: Laboratory Tests 12/06/21 17:39: Creatinine 1.03, INR Comment 1.0, Platelet Count 244, Total Bilirubin 0.4 Results/Orders Lab Results Laboratory Tests Test 7/29/22 17:39 12/06/21 17:40 12/06/21 18:40 Range/Units White Blood Count 9.1 4.3-11.0 10^3/uL Red Blood Count 4.87 4.30-5.52 10^6/uL Hemoglobin 14.9 13.3-17.7 g/dL Hematocrit 43 40-54 % Mean Corpuscular Volume 89 80-99 fL Mean Corpuscular Hemoglobin 31 25-34 pg Mean Corpuscular Hemoglobin Concent 34 32-36 g/dL Red Cell Distribution Width 13.1 10.0-14.5 % Platelet Count 244 130-400 10^3/uL Mean Platelet Volume 10.8 9.0-12.2 fL Immature Granulocyte % (Auto) 0 % Neutrophils (%) (Auto) 68 42-75 % Lymphocytes (%) (Auto) 21 12-44 % Monocytes (%) (Auto) 8 0-12 % Eosinophils (%) (Auto) 2 0-10 % Basophils (%) (Auto) 0 0-10 % Neutrophils # (Auto) 6.2 1.8-7.8 10^3/uL Lymphocytes # (Auto) 2.0 1.0-4.0 10^3/uL Monocytes # (Auto) 0.8 0.0-1.0 10^3/uL Eosinophils # (Auto) 0.2 0.0-0.3 10^3/uL Basophils # (Auto) 0.0 0.0-0.1 10^3/uL Immature Granulocyte # (Auto) 0.0 0.0-0.1 10^3/uL Erythrocyte Sedimentation Rate 5 0-15 MM/HR Prothrombin Time 13.6 12.2-14.7 SEC INR Comment 1.0 0.8-1.4 Activated Partial Thromboplast Time 30 24-35 SEC D-Dimer 0.27 0.00-0.49 UG/ML Sodium Level 139 135-145 MMOL/L Potassium Level 4.2 3.6-5.0 MMOL/L Chloride Level 103 98-107 MMOL/L Carbon Dioxide Level 26 21-32 MMOL/L Anion Gap 10 5-14 MMOL/L Blood Urea Nitrogen 13 7-18 MG/DL Creatinine 1.03 0.60-1.30 MG/DL Estimat Glomerular Filtration Rate 95 BUN/Creatinine Ratio 13 Glucose Level 103 70-105 MG/DL Calcium Level 8.6 8.5-10.1 MG/DL Corrected Calcium 8.7 8.5-10.1 MG/DL Magnesium Level 2.0 1.6-2.4 MG/DL Total Bilirubin 0.4 0.1-1.0 MG/DL Aspartate Amino Transf (AST/SGOT) 14 5-34 U/L Alanine Aminotransferase (ALT/SGPT) 20 0-55 U/L Alkaline Phosphatase 88 40-136 U/L Total Creatine Kinase 84 30-200 U/L Creatine Kinase MB 1.0 <6.6 NG/ML Myoglobin 26.5 10.0-92.0 NG/ML Troponin I < 0.028 <0.028 NG/ML C-Reactive Protein High Sensitivity 0.10 0.00-0.50 MG/DL B-Type Natriuretic Peptide 42.9 <100.0 PG/ML Total Protein 6.2 L 6.4-8.2 GM/DL Albumin 3.9 3.2-4.5 GM/DL Acetaminophen Level < 10 L 10-30 UG/ML Serum Alcohol < 10 <10 MG/DL Influenza Type A (RT-PCR) Not Detected Not Detecte Influenza Type B (RT-PCR) Not Detected Not Detecte SARS-CoV-2 RNA (RT-PCR) Not Detected Not Detecte Urine Color YELLOW Urine Clarity CLEAR Urine pH 6.0 5-9 Urine Specific [place] 1.010 L 1.016-1.022 Urine Protein NEGATIVE NEGATIVE Urine Glucose (UA) NEGATIVE NEGATIVE Urine Ketones NEGATIVE NEGATIVE Urine Nitrite NEGATIVE NEGATIVE Urine Bilirubin NEGATIVE NEGATIVE Urine Urobilinogen 0.2 < = 1.0 MG/DL Urine Leukocyte Esterase NEGATIVE NEGATIVE Urine RBC (Auto) NEGATIVE NEGATIVE Urine RBC NONE /HPF Urine WBC NONE /HPF Urine Squamous Epithelial Cells NONE /HPF Urine Crystals NONE /LPF Urine Bacteria NEGATIVE /HPF Urine Casts NONE /LPF Urine Mucus NEGATIVE /LPF Urine Culture Indicated NO Urine Opiates Screen NEGATIVE NEGATIVE Urine Oxycodone Screen NEGATIVE NEGATIVE Urine Methadone Screen NEGATIVE NEGATIVE Urine Propoxyphene Screen NEGATIVE NEGATIVE Urine Barbiturates Screen NEGATIVE NEGATIVE Ur Tricyclic Antidepressants Screen NEGATIVE NEGATIVE Urine Phencyclidine Screen NEGATIVE NEGATIVE Urine Amphetamines Screen POSITIVE H NEGATIVE Urine Methamphetamines Screen POSITIVE H NEGATIVE Urine Benzodiazepines Screen NEGATIVE NEGATIVE Urine Cocaine Screen NEGATIVE NEGATIVE Urine Cannabinoids Screen NEGATIVE NEGATIVE My Orders Orders - KATERIN BROWN DO Covid 19 Inhouse Test (12/06/21 17:47) Influenza A And B By Pcr (12/06/21 17:47) Isolation Central Supply Req (12/06/21 17:47) Ed Iv/Invasive Line Start (12/06/21 18:28) Ekg Tracing (12/06/21 18:28) Monitor-Rhythm Ecg Trace Only (12/06/21 18:28) Ct Head Wo-R/O Stroke (12/06/21 18:28) Ct Cervical Spine Wo (12/06/21 18:28) Chest 1 View, Ap/Pa Only (12/06/21 18:28) Acetaminophen (12/06/21 18:28) Alcohol (12/06/21 18:28) Bnp [place] (12/06/21 18:28) Cbc With Automated Diff (12/06/21 18:28) Comprehensive Metabolic Panel (12/06/21 18:28) Creatine Kinase (12/06/21 18:28) Creatine Kinase Mb (12/06/21 18:28) Hs C Reactive Protein (12/06/21 18:28) Fibrin Degradation Products (12/06/21 18:28) Drug Screen Stat (Urine) (12/06/21 18:28) Magnesium (12/06/21 18:28) Protime With Inr (12/06/21 18:28) Partial Thromboplastin Time (12/06/21 18:28) Ua Culture If Indicated (12/06/21 18:28) Erythrocyte Sedimentation Rate (12/06/21 18:28) Myoglobin Serum (12/06/21 18:28) Troponin I [place] (12/06/21 18:28) Vital Signs/I&O 12/06/21 17:44 Temp 36.6 Pulse 79 B/P (MAP) 146/103 (117) Pulse Ox 100 Capillary Refill : Progress Note : Progress Note PLACED IN ISOLATION ROOM PPE WORN COVID AND FLU TESTING DONE NO COUGH NO DYSPNEA NO HYPOXIA NO FEVER DURING ER STAY UNEVENTFUL ER STAY DISCUSSED + UDS, AND HE NOW ADMITS TO USING METH "BUT NOT FOR AT LEAST 6 MONTHS", "MAYBE SOMEONE PUT IT IN MY DRINK OR SOMETHING" ECG Initial ECG Impression Date: Dec 06, 2021 Initial ECG Impression Time: 18:34 Initial ECG Rate: 83 Initial ECG Rhythm: Normal Sinus Diagnostic Imaging Comments CXR--PER RADIOLOGIST REPORT AT 1916 FINDINGS: The lung volumes are normal. No focal consolidation is seen. No large pleural effusion or pneumothorax is seen. The cardiomediastinal silhouette is normal in size and contour. No acute osseous abnormality is seen. IMPRESSION: No acute pulmonary abnormality seen. CT HEAD--PER RADIOLOGIST REPORT AT 1932 ]COMPARISON: 11/15/2020. FINDINGS: CT of the head demonstrates no evidence of an acute intracranial abnormality. There is no evidence of intracranial hemorrhage. There is no extra-axial fluid collection, mass effect or shift. Waters and white matter differentiation appear preserved. There is no abnormal hypodensity within the basal ganglia. The ventricles are appropriate in size and configuration. There is no evidence of hydrocephalus. The basilar cisterns are patent. The posterior fossa is unremarkable. Mastoids and visualized paranasal sinuses appear clear. Orbital contents are unremarkable. There is no calvarial abnormality. Nasal fractures are noted. IMPRESSION: 1. No CT evidence of an acute intracranial abnormality. No territorial loss of waters-white differentiation or hemorrhage evident. There is no hyperdense vessel. CT CERVICAL SPINE--PER RADIOLOGIST REPORT AT 1933 FINDINGS: Alignment of the cervical spine is normal. There is no normal alignment of the craniocervical junction. There are normal relationships of the lateral masses of C1 and C2. The facets are normally aligned. There is no facet joint or disc space widening. Vertebral body heights are maintained. There is no acute cervical spine fracture. There is no suspicious bone lesion. There are no CT findings to suggest high-grade cervical canal or foraminal stenosis. The lung apices are clear. Soft tissues of the neck demonstrate no acute process. IMPRESSION: 1. Normal cervical spine alignment without findings of fracture or suspicious bone lesion 2. No CT evidence to suggest significant cervical canal or foraminal stenosis. Reviewed: Reviewed by Me Departure Impression Primary Impression: Methamphetamine use Additional Impressions: Alcohol abuse Headache TRANSIENT BILATERAL ARM PARESTHESIAS Disposition: 01 HOME, SELF-CARE Condition: Stable Departure-Patient Inst. Referrals: [facility] Patient Instructions: Headache, Adult (DC), Drug Abuse and Drug Addiction (DC), Alcohol Use Disorder ED, Home Headache Remedies Add. Discharge Instructions: NO ALCOHOL NO DRUGS INCREASE YOUR WATER INTAKE TYLENOL 1 GRAM PLUS MOTRIN 800 MG 4 TIMES A DAY [facility] All discharge instructions reviewed with patient and/or family. Voiced understanding. KATERIN BROWN DO Dec 06, 2021 17:54
[2021-12-06 18:40] LABS: BASOPHILS % (AUTO) 0 % (0-10); EOSINOPHILS # (AUTO) 0.2 10^3/uL (0.0-0.3); EOSINOPHILS % (AUTO) 2 % (0-10); HEMATOCRIT 43 % (40-54); HEMOGLOBIN 14.9 g/dL (13.3-17.7); LYMPHOCYTES % (AUTO) 21 % (12-44); MEAN CORPUSCULAR HEMOGLOBIN 31 pg (25-34); MEAN CORPUSCULAR HGB CONC 34 g/dL (32-36); MEAN CORPUSCULAR VOLUME 89 fL (80-99); MEAN PLATELET VOLUME 10.8 fL (9.0-12.2); MONOCYTES # (AUTO) 0.8 10^3/uL (0.0-1.0); MONOCYTES % (AUTO) 8 % (0-12); NEUTROPHILS # (AUTO) 6.2 10^3/uL (1.8-7.8); NEUTROPHILS % (AUTO) 68 % (42-75); PLATELET COUNT 244 10^3/uL (130-400); WHITE BLOOD COUNT 9.1 10^3/uL (4.3-11.0)
[2021-12-06 18:56] LABS: ERYTHROCYTE SEDIMENTATION RATE 5 MM/HR (0-15)
[2021-12-06 18:59] LABS: BILIRUBIN,URINE NEGATIVE (NEGATIVE); CLARITY,URINE CLEAR; COLOR,URINE YELLOW; GLUCOSE, URINE (UA) NEGATIVE (NEGATIVE); KETONES,URINE NEGATIVE (NEGATIVE); LEUKOCYTE ESTERASE ,URINE NEGATIVE (NEGATIVE); NITRITE,URINE NEGATIVE (NEGATIVE); PROTEIN,URINE NEGATIVE (NEGATIVE)
[2021-12-06 19:00] LABS: BACTERIA,URINE NEGATIVE /HPF
[2021-12-06 19:02] LABS: AMPHETAMINE SCREEN, URINE POSITIVE (NEGATIVE); BARBITURATE SCREEN URINE NEGATIVE (NEGATIVE); BENZODIAZEPINES SCREEN URINE NEGATIVE (NEGATIVE); CANNABINOID SCREEN, URINE NEGATIVE (NEGATIVE); COCAINE SCREEN URINE NEGATIVE (NEGATIVE); METHADONE STAT NEGATIVE (NEGATIVE); OPIATE SCREEN URINE NEGATIVE (NEGATIVE); OXYCODONE STAT NEGATIVE (NEGATIVE); PROPOXYPHENE STAT NEGATIVE (NEGATIVE); TRICYCLIC ANTIDEPRESSANTS SCRE NEGATIVE (NEGATIVE)
[2021-12-06 19:03] LABS: FIBRIN DEGRADATION PRODUCTS 0.27 UG/ML (0.00-0.49); PROTHROMBIN TIME PATIENT 13.6 SEC (12.2-14.7)
[2021-12-06 19:09] LABS: ALANINE AMINOTRANSFERASE 20 U/L (0-55); ALBUMIN 3.9 GM/DL (3.2-4.5); ALKALINE PHOSPHATASE 88 U/L (40-136); BILIRUBIN,TOTAL 0.4 MG/DL (0.1-1.0); BUN/CREATININE RATIO 13; CALCIUM 8.6 MG/DL (8.5-10.1); CARBON DIOXIDE 26 MMOL/L (21-32); CHLORIDE 103 MMOL/L (98-107); CREATINE KINASE 84 U/L (30-200); CREATININE SERUM 1.03 MG/DL (0.60-1.30); GFR ESTIMATED 95; GLUCOSE 103 MG/DL (70-105); POTASSIUM 4.2 MMOL/L (3.6-5.0); SODIUM 139 MMOL/L (135-145); TOTAL PROTEIN 6.2 GM/DL (6.4-8.2)
[2021-12-06 19:11] LABS: ACETAMINOPHEN < 10 UG/ML (10-30)
--- NOTE | 2021-12-06 19:13 | Diagnostic Imaging Report ---
PATIENT HISTORY: Dyspnea. TECHNIQUE: Single frontal view of the chest. COMPARISON: 11/12/2021. FINDINGS: The lung volumes are normal. No focal consolidation is seen. No large pleural effusion or pneumothorax is seen. The cardiomediastinal silhouette is normal in size and contour. No acute osseous abnormality is seen. IMPRESSION: No acute pulmonary abnormality seen. Dictated by: Dictated on workstation # [id number]
--- NOTE | 2021-12-06 19:25 | Diagnostic Imaging Report ---
PROCEDURE: CT head wo r/o stroke. TECHNIQUE: Multiple contiguous axial images were obtained through the brain without the use of intravenous contrast. Auto Exposure Controls were utilized during the CT exam to meet ALARA standards for radiation dose reduction. INDICATION: Headache and photopenia. Evaluate for stroke. Neurological deficits. COMPARISON: 11/15/2020. FINDINGS: CT of the head demonstrates no evidence of an acute intracranial abnormality. There is no evidence of intracranial hemorrhage. There is no extra-axial fluid collection, mass effect or shift. Waters and white matter differentiation appear preserved. There is no abnormal hypodensity within the basal ganglia. The ventricles are appropriate in size and configuration. There is no evidence of hydrocephalus. The basilar cisterns are patent. The posterior fossa is unremarkable. Mastoids and visualized paranasal sinuses appear clear. Orbital contents are unremarkable. There is no calvarial abnormality. Nasal fractures are noted. IMPRESSION: 1. No CT evidence of an acute intracranial abnormality. No territorial loss of waters-white differentiation or hemorrhage evident. There is no hyperdense vessel. Dictated by: Dictated on workstation # [id number]
--- NOTE | 2021-12-06 19:30 | Diagnostic Imaging Report ---
PROCEDURE: CT cervical spine without contrast. TECHNIQUE: Multiple contiguous axial images were obtained through the cervical spine without the use of intravenous contrast. Sagittal and coronal reformations were then performed. Auto Exposure Controls were utilized during the CT exam to meet ALARA standards for radiation dose reduction. INDICATION: Neurological deficits. Neck pain. FINDINGS: Alignment of the cervical spine is normal. There is no normal alignment of the craniocervical junction. There are normal relationships of the lateral masses of C1 and C2. The facets are normally aligned. There is no facet joint or disc space widening. Vertebral body heights are maintained. There is no acute cervical spine fracture. There is no suspicious bone lesion. There are no CT findings to suggest high-grade cervical canal or foraminal stenosis. The lung apices are clear. Soft tissues of the neck demonstrate no acute process. IMPRESSION: 1. Normal cervical spine alignment without findings of fracture or suspicious bone lesion 2. No CT evidence to suggest significant cervical canal or foraminal stenosis. Dictated by: Dictated on workstation # [id number]
[2021-12-06 19:37] VITALS: BP 136/99
== END 2021-12-06 19:40 | disposition home or self-care (01) ==
LOC: EDUNIT# 17:34 → ER 17:35
DX: R51.9 Headache, unspecified (principal); R20.2 Paresthesia of skin; F10.10 Alcohol abuse, uncomplicated; F15.90 Other stimulant use, unspecified, uncomplicated; F17.210 Nicotine dependence, cigarettes, uncomplicated; Z20.822 Contact with and (suspected) exposure to COVID-19
CPT/HCPCS: 70450; 71045; 72125; 80053; 80306; 81000; 82550; 82553; 83735; 83874; 83880; 84484; 85025; 85379; 85610; 85652; 85730; 86141; 87636; 93005; 93041; 99284; G0480 ×2; 36415; 80320; 80329

== ENCOUNTER 2022-02-03 13:08 | Emergency (ER) | payer SELFPAY | END 2022-02-03 13:15 | disposition left against medical advice (07) | LOC: ER 13:08 → EDUNIT# 13:08 → ER 13:15 | DX: M54.2 Cervicalgia (principal); R51.9 Headache, unspecified ==

== ENCOUNTER 2022-02-26 14:10 | Emergency (ER) | payer SELFPAY ==
[~2022-02-26] VITALS: Ht 187.9 cm; Wt 82.1 kg
[2022-02-26] MEDS ORDERED: KETOROLAC 30 MG/ML VIAL IVP ONE (15:30)
[2022-02-26 15:51] LABS: BASOPHILS % (AUTO) 1 % (0-10); EOSINOPHILS # (AUTO) 0.2 10^3/uL (0.0-0.3); EOSINOPHILS % (AUTO) 2 % (0-10); HEMATOCRIT 47 % (40-54); HEMOGLOBIN 16.3 g/dL (13.3-17.7); LYMPHOCYTES # (AUTO) 2.1 10^3/uL (1.0-4.0); LYMPHOCYTES % (AUTO) 29 % (12-44); MEAN CORPUSCULAR HEMOGLOBIN 31 pg (25-34); MEAN CORPUSCULAR HGB CONC 35 g/dL (32-36); MEAN CORPUSCULAR VOLUME 89 fL (80-99); MEAN PLATELET VOLUME 9.9 fL (9.0-12.2); MONOCYTES # (AUTO) 0.8 10^3/uL (0.0-1.0); MONOCYTES % (AUTO) 11 % (0-12); NEUTROPHILS # (AUTO) 4.1 10^3/uL (1.8-7.8); NEUTROPHILS % (AUTO) 56 % (42-75); PLATELET COUNT 265 10^3/uL (130-400); WHITE BLOOD COUNT 7.2 10^3/uL (4.3-11.0)
[2022-02-26 16:09] LABS: ALBUMIN 4.2 GM/DL (3.2-4.5); POTASSIUM 4.2 MMOL/L (3.6-5.0)
[2022-02-26 16:11] LABS: CALCIUM 9.4 MG/DL (8.5-10.1)
[2022-02-26 16:12] LABS: TOTAL PROTEIN 7.2 GM/DL (6.4-8.2)
[2022-02-26 16:14] LABS: BILIRUBIN,TOTAL 0.2 MG/DL (0.1-1.0)
[2022-02-26 16:16] LABS: CREATININE SERUM 0.99 MG/DL (0.60-1.30)
--- NOTE | 2022-02-26 16:24 | ED Lower Extremity ---
General Chief Complaint: Lower Extremity Stated Complaint: KNOTS ON LEFT LEG Nursing Triage Note: PT TO TRIAGE BY WC WITH COMPLAINT OF LUMPS ON LEFT LEG. STATES STARTED LAST NIGHT AND IS PAINFUL TO WALK. Source: patient Exam Limitations: no limitations History of Present Illness Date Seen by Provider: Feb 26, 2022 Time Seen by Provider: 16:00 Initial Comments This is a well-appearing 41-year-old male who presented to the ER with concerns of lumps on his left leg. States that his symptoms started last night, has become increasing painful to walk. States that he is concerned that he has a blood clot. Does not have any redness, swelling, bruising. Denies any trauma. No history of DVTs. Allergies and Home Medications Allergies Coded Allergies: Penicillins (Verified Allergy, Unknown, 01/12/08) codeine (Verified Allergy, Unknown, 01/12/08) Patient Home Medication List Home Medication List Reviewed: Yes Azithromycin (Azithromycin) 250 Mg Tablet, 250 MG PO DAILY Prescribed by: JUNIOR EVANS on 11/12/21 182 Cephalexin (Cephalexin) 500 Mg Tablet, 500 MG PO TID Prescribed by: LO FRIEND on 11/15/20 1255 Cyclobenzaprine HCl (Cyclobenzaprine HCl) 10 Mg Tablet, 10 MG PO Q8H PRN for SPASMS Prescribed by: YOGI HODGES on 09/18/21 185 Cyclobenzaprine HCl (Cyclobenzaprine HCl) 10 Mg Tablet, 10 MG PO Q8H PRN for SPASMS Prescribed by: JUNIOR EVANS on 02/26/22 1638 Hydrocodone/Acetaminophen (Hydrocodone-Acetamin 5-325 mg) 1 Each Tablet, 1 TAB PO Q4H PRN for PAIN-MODERATE (5-7) Prescribed by: LO FRIEND on 05/07/21 151 Hydrocodone/Acetaminophen (Hydrocodone-Acetamin 5-325 mg) 5 Mg-325 Mg Tablet, 1 TAB PO Q6H PRN for PAIN-MODERATE (5-7) Prescribed by: YOGI HODGES on 09/18/21 185 Methylprednisolone (Methylprednisolone Dose Pack) 4 Mg Tab.ds.pk, 4 MG PO UD Prescribed by: JUNIOR EVANS on 11/12/21 181 Prednisone (Prednisone) 20 Mg Tab, 40 MG PO DAILY Prescribed by: LO FRIEND on 05/07/21 1510 Prednisone (Prednisone) 20 Mg Tab, 40 MG PO DAILY Prescribed by: YOGI HODGES on 09/18/21 1857 Review of Systems Constitutional: no symptoms reported EENTM: no symptoms reported Respiratory: no symptoms reported Cardiovascular: no symptoms reported Gastrointestinal: no symptoms reported Genitourinary: no symptoms reported Musculoskeletal: muscle pain Skin: see HPI Psychiatric/Neurological: No Symptoms Reported Past Jvcujwo-Cefiat-Edheip Hx Patient Social History Tobacco Use?: No Use of E-Cig and/or Vaping dev: No Substance use?: No Alcohol Use?: No Pt feels they are or have been: No Immunizations Up To Date Tetanus Booster (TDap): Less than 5yrs First/Initial COVID19 Vaccinat: 2020 Second COVID19 Vaccination Junaid: 2020 Third COVID19 Vaccination Date: 2020 Seasonal Allergies Seasonal Allergies: No Past Medical History Surgery/Hospitalization HX: HTN FEMUR Surgeries: Yes (SURGERY ON FEMUR) Orthopedic, Tonsillectomy Respiratory: Yes (RESPIRATORY INFECTIONS) Chronic Bronchitis Cardiac: Yes Hypertension Neurological: Yes Headaches /Migraines, Seizure Disorder Reproductive Disorders: No Sexually Transmitted Disease: No HIV/AIDS: No Genitourinary: No Gastrointestinal: Yes Ulcer Musculoskeletal: Yes Chronic Back Pain, Fractures Endocrine: Yes Hyperthyroidism HEENT: No Cancer: No Psychosocial: Yes ADD/ADHD, Sleep Difficulties, Bipolar, Schizophrenia, Depression Integumentary: No Blood Disorders: No Adverse Reaction/Blood Tranf: No Family Medical History Patient reports no known family medical history. No Pertinent Family Hx SOCIAL HISTORY: -SMOKED 1/2-1 PPD, QUIT 5 YEARS AGO, PER PT ON 12/06/21 -ETOH--DRINKS DAILY--12 PACK BEER PLUS A FIFTH OF "FIREBALL" EVERY DAY -DRUGS--METH, THC, OPIATES. DENIES IV DRUG USE. STATES SHE SMOKES METH. Physical Exam Vital Signs Capillary Refill : Less Than 3 Seconds Height, Weight, BMI Height: 6'1" Weight: 170lbs. 4.0oz. 77.670492nx; 23.00 BMI Method:Stated General Appearance: WD/WN, no apparent distress HEENT: PERRL/EOMI, normal ENT inspection Neck: full range of motion, normal inspection Cardiovascular: regular rate, rhythm, no edema Respiratory: chest non-tender, lungs clear, normal breath sounds, no respiratory distress, no accessory muscle use Gastrointestinal: normal bowel sounds, non tender, soft Back: normal inspection, no vertebral tenderness Hips: bilateral hip non-tender, bilateral hip normal inspection, bilateral hip normal range of motion Legs: right leg non-tender, right leg normal inspection, right leg normal range of motion, right leg no evidence of injury; left leg other (muscle spasm of left lateral thigh) Knees: bilateral knee non-tender, bilateral knee normal inspection, bilateral knee normal range of motion, bilateral knee no evidence of injury Ankles: bilateral ankle non-tender, bilateral ankle normal inspection, bilateral ankle normal range of motion, bilateral ankle no evidence of injury Feet: bilateral foot non-tender, bilateral foot normal inspection, bilateral foot normal range of motion Neurologic/Tendon: normal sensation, normal motor functions, normal tendon functions Neurologic/Psychiatric: no motor/sensory deficits, alert, normal mood/affect, oriented x 3 Skin: normal color, warm/dry Procedures/Interventions Suture Size: 5-0 Progress/Results/Core Measures Results/Orders Lab Results Laboratory Tests Test 02/26/22 15:37 Range/Units White Blood Count 7.2 4.3-11.0 10^3/uL Red Blood Count 5.31 4.30-5.52 10^6/uL Hemoglobin 16.3 13.3-17.7 g/dL Hematocrit 47 40-54 % Mean Corpuscular Volume 89 80-99 fL Mean Corpuscular Hemoglobin 31 25-34 pg Mean Corpuscular Hemoglobin Concent 35 32-36 g/dL Red Cell Distribution Width 12.6 10.0-14.5 % Platelet Count 265 130-400 10^3/uL Mean Platelet Volume 9.9 9.0-12.2 fL Immature Granulocyte % (Auto) 1 % Neutrophils (%) (Auto) 56 42-75 % Lymphocytes (%) (Auto) 29 12-44 % Monocytes (%) (Auto) 11 0-12 % Eosinophils (%) (Auto) 2 0-10 % Basophils (%) (Auto) 1 0-10 % Neutrophils # (Auto) 4.1 1.8-7.8 10^3/uL Lymphocytes # (Auto) 2.1 1.0-4.0 10^3/uL Monocytes # (Auto) 0.8 0.0-1.0 10^3/uL Eosinophils # (Auto) 0.2 0.0-0.3 10^3/uL Basophils # (Auto) 0.0 0.0-0.1 10^3/uL Immature Granulocyte # (Auto) 0.1 0.0-0.1 10^3/uL D-Dimer <= 0.27 0.00-0.49 UG/ML Sodium Level 135 135-145 MMOL/L Potassium Level 4.2 3.6-5.0 MMOL/L Chloride Level 101 98-107 MMOL/L Carbon Dioxide Level 26 21-32 MMOL/L Anion Gap 8 5-14 MMOL/L Blood Urea Nitrogen 11 7-18 MG/DL Creatinine 0.99 0.60-1.30 MG/DL Estimat Glomerular Filtration Rate 99 BUN/Creatinine Ratio 11 Glucose Level 95 70-105 MG/DL Calcium Level 9.4 8.5-10.1 MG/DL Corrected Calcium 9.2 8.5-10.1 MG/DL Total Bilirubin 0.2 0.1-1.0 MG/DL Aspartate Amino Transf (AST/SGOT) 20 5-34 U/L Alanine Aminotransferase (ALT/SGPT) 32 0-55 U/L Alkaline Phosphatase 78 40-136 U/L C-Reactive Protein High Sensitivity 0.13 0.00-0.50 MG/DL Total Protein 7.2 6.4-8.2 GM/DL Albumin 4.2 3.2-4.5 GM/DL My Orders Orders - JUNIOR EVANS HEAD BATCHER Cbc With Automated Diff (02/26/22 15:27) Comprehensive Metabolic Panel (02/26/22 15:27) Fibrin Degradation Products (02/26/22 15:27) Ed Iv/Invasive Line Start (02/26/22 15:27) Hs C Reactive Protein (02/26/22 15:27) Ketorolac Injection (Toradol Injection) (02/26/22 15:30) Iv Push Wood Heel Flap Rubber Ed (02/26/22 ) Medications Given in ED Vital Signs/I&O Blood Pressure Mean: 97 Progress Progress Note : Progress Note Patient examined no acute distress. He has no erythema, bruising, swelling to his lower extremities. He does appear to have a muscle spasm of his left lateral thigh. Tender to touch. He is very concerned for infection or blood clot. We will go ahead and obtain basic labs and check a D-dimer. Given Toradol for pain. Labs and imaging reviewed, negative for acute findings. Reviewed discharge plan of care with him and he is agreeable with plan. Departure Impression Primary Impression: Muscle spasm of right leg Disposition: HOME, SELF-CARE Condition: Improved Departure-Patient Inst. Decision time for Depature: 16:35 Referrals: [facility] (PCP/Family) Primary Care Physician Patient Instructions: Muscle Spasm ED Add. Discharge Instructions: Plan: 1. May use Tylenol or Ibuprofen as needed for pain per package. 2. Take Flexeril 10mg by mouth every 8 hour as needed for pain per package, do not drive while taking. 3. May use heat 20 minutes at a time to see if this improves your pain. 4. Discharge POC reviewed and she is agreeable with plan. All discharge instructions reviewed with patient and/or family. Voiced understanding. Scripts Cyclobenzaprine HCl (Cyclobenzaprine HCl) 10 Mg Tablet 10 MG PO Q8H PRN for SPASMS, #15 TAB 0 Refills Prov: JUNIOR EVANS APRN 02/26/22 JUNIOR EVANS APRN Feb 26, 2022 16:24
[2022-02-26] MEDS ORDERED: CYCL10TA25 PO (16:38)
[2022-02-26 17:04] VITALS: BP 122/84
== END 2022-02-26 17:04 | disposition home or self-care (01) ==
LOC: EDUNIT# 14:10 → ER 14:12
DX: M62.831 Muscle spasm of calf (principal); Z87.891 Personal history of nicotine dependence; Z98.890 Other specified postprocedural states; Z28.310 Unvaccinated for COVID-19
CPT/HCPCS: 36415; 80053; 85025; 85379; 86141; 96374